=== PATIENT | male | born 1980 | race Caucasian/White ===

== ENCOUNTER 2017-02-09 19:38 | Inpatient (IN) | payer OTHER ==
[~2017-02-09] VITALS: Ht 177.8 cm; Wt 98.9 kg
--- NOTE | 2017-02-09 20:28 | ED Abdominal Pain ---
General Chief Complaint: Abdominal/GI Problems Stated Complaint: SHARP ABD PAIN Nursing Triage Note: INTERMITTANT SHARP LLQ ABDOMINAL PAIN SINCE SATURDAY AM. DENIES N/V/D. Sepsis Screen: Possible Sepsis Risk Source of Information: Patient Exam Limitations: No Limitations History of Present Illness Time Seen By Provider: 20:31 Initial Comments To ER with left lower quadrant sharp abdominal pain since yesterday. Denies nausea vomiting diarrhea or dysuria. No known fevers though he is found to be 101.8 here. Timing/Duration: 1-2 Days Severity/Quality: Moderate Location: LLQ Radiation: No Radiation, LLQ Activities at Onset: None Associated Symptoms: Denies Symptoms, No Fever/Chills, No Nausea/Vomiting Allergies and Home Medications Allergies Coded Allergies: No Known Drug Allergies (Unverified , 02/09/17) Home Medications No Active Prescriptions or Reported Meds Review of Systems Constitutional: see HPI EENTM: No Symptoms Reported Respiratory: No Symptoms Reported Cardiovascular: No Symptoms Reported Gastrointestinal: See HPI Genitourinary: No Symptoms Reported Musculoskeletal: no symptoms reported Skin: no symptoms reported Psychiatric/Neurological: No Symptoms Reported Endocrine: No Symptoms Reported Hematologic/Lymphatic: No Symptoms Reported Past Kywtuzg-Odixte-Eqqlok Hx Patient Social History Alcohol Use: Denies Use Recreational Drug Use: Yes Smoking Status: Never a Smoker Type Used: Smokeless Tobacco 2nd Hand Smoke Exposure: No Recent Foreign Travel: No Contact w/Someone Who Travel: No Recent Infectious Disease Expo: No Recent Hopitalizations: No Immunizations Up To Date Tetanus Booster (TDap): Unknown Seasonal Allergies Seasonal Allergies: No Surgeries HX Surgeries: Yes (EAR) Respiratory Hx Respiratory Disorders: No Cardiovascular Hx Cardiac Disorders: No Neurological Hx Neurological Disorders: No Reproductive System Hx Reproductive Disorders: No Genitourinary Hx Genitourinary Disorders: No Gastrointestinal Hx Gastrointestinal Disorders: No Musculoskeletal Hx Musculoskeletal Disorders: No Endocrine Hx Endocrine Disorders: No HEENT HX ENT Disorders: No Cancer Hx Cancer: No Psychosocial Hx Psychiatric Problems: No Integumentary HX Skin/Integumentary Disorder: No Physical Exam Vital Signs VS - Last 72 Hours, by Label 02/09/17 02/09/17 20:07 20:43 Temp 101.1 101.1 Pulse 103 Resp 18 B/P (MAP) 135/65 Pulse Ox 95 O2 Delivery Room Air Capillary Refill : Less Than 3 Seconds General Appearance: WD/WN, no apparent distress HEENT: PERRL/EOMI, normal ENT inspection Neck: non-tender, full range of motion Respiratory: normal breath sounds, no respiratory distress, no accessory muscle use Gastrointestinal: normal bowel sounds, soft, tenderness (left lower quadrant) Extremities: normal range of motion, non-tender Neurologic/Psychiatric: alert, normal mood/affect, oriented x 3 Skin: normal color, warm/dry Focused Exam Lactic Acid Level Laboratory Tests Test 02/09/17 20:17 Lactic Acid Level 0.71 MMOL/L (0.50-2.00) Progress/Results/Core Measures Results/Orders Lab Results Laboratory Tests Test 02/09/17 20:17 Range/Units White Blood Count 19.7 H 4.3-11.0 10^3/uL Red Blood Count 5.14 4.35-5.85 10^6/uL Hemoglobin 14.7 13.3-17.7 G/DL Hematocrit 45 40-54 % Mean Corpuscular Volume 88 80-99 FL Mean Corpuscular Hemoglobin 29 25-34 PG Mean Corpuscular Hemoglobin Concent 33 32-36 G/DL Red Cell Distribution Width 14.0 10.0-14.5 % Platelet Count 328 130-400 10^3/uL Mean Platelet Volume 9.4 7.4-10.4 FL Neutrophils (%) (Auto) 88 H 42-75 % Lymphocytes (%) (Auto) 5 L 12-44 % Monocytes (%) (Auto) 7 0-12 % Eosinophils (%) (Auto) 0 0-10 % Basophils (%) (Auto) 0 0-10 % Neutrophils # (Auto) 17.3 H 1.8-7.8 X 10^3 Lymphocytes # (Auto) 0.9 L 1.0-4.0 X 10^3 Monocytes # (Auto) 1.4 H 0.0-1.0 X 10^3 Eosinophils # (Auto) 0.1 0.0-0.3 10^3/uL Basophils # (Auto) 0.0 0.0-0.1 10^3/uL Neutrophils % (Manual) 92 % Lymphocytes % (Manual) 4 % Monocytes % (Manual) 2 % Eosinophils % (Manual) 1 % Basophils % (Manual) 0 % Band Neutrophils 1 % Blood Morphology Comment NORMAL Sodium Level 139 135-145 MMOL/L Potassium Level 3.9 3.6-5.0 MMOL/L Chloride Level 107 98-107 MMOL/L Carbon Dioxide Level 24 21-32 MMOL/L Anion Gap 8 5-14 MMOL/L Blood Urea Nitrogen 10 7-18 MG/DL Creatinine 0.93 0.60-1.30 MG/DL Estimat Glomerular Filtration Rate > 60 BUN/Creatinine Ratio 11 Glucose Level 95 70-105 MG/DL Lactic Acid Level 0.71 0.50-2.00 MMOL/L Calcium Level 9.2 8.5-10.1 MG/DL Total Bilirubin 0.8 0.1-1.0 MG/DL Aspartate Amino Transf (AST/SGOT) 12 5-34 U/L Alanine Aminotransferase (ALT/SGPT) 11 0-55 U/L Alkaline Phosphatase 240 H 40-136 U/L Total Protein 6.9 6.4-8.2 G/DL Albumin 4.0 3.2-4.5 G/DL My Orders Orders - RICHI VILLA APRN Cbc With Automated Diff (02/09/17 20:05) Comprehensive Metabolic Panel (02/09/17 20:05) Ua Culture If Indicated (02/09/17 20:05) Ct Abdomen/Pelvis W (02/09/17 20:16) Saline Lock/Iv-Start (02/09/17 20:16) Blood Culture (02/09/17 20:16) Lactic Acid Analyzer (02/09/17 20:16) Ibuprofen Tablet (Motrin Tablet) (02/09/17 20:30) Ns Iv 1000 Ml (Sodium Chloride 0.9%) (02/09/17 20:30) Fentanyl Injection (Sublimaze Injection (02/09/17 20:30) Iohexol Injection (Omnipaque 350 Mg/Ml 1 (02/09/17 20:30) Ns (Ivpb) (Sodium Chloride 0.9% Ivpb Bag (02/09/17 20:30) Manual Differential (02/09/17 20:17) Piperacillin Sodium/Tazobactam (Zosyn Vi (02/09/17 21:00) Medications Given in ED Current Medications Medications Dose Ordered Sig/Callie Route Start Time Stop Time Status Last Admin Dose Admin Fentanyl Citrate 50 mcg ONCE ONCE IVP 02/09/17 20:30 02/09/17 20:31 DC 02/09/17 20:44 50 MCG Ibuprofen 800 mg ONCE ONCE PO 02/09/17 20:30 02/09/17 20:31 DC 02/09/17 20:43 800 MG Iohexol 100 ml ONCE ONCE IV 02/09/17 20:30 02/09/17 20:31 DC 02/09/17 20:33 100 ML Sodium Chloride 100 ml ONCE ONCE IV 02/09/17 20:30 02/09/17 20:31 DC 02/09/17 20:33 80 ML Vital Signs/I&O Vital Sign - Last 12Hours 02/09/17 02/09/17 20:07 20:43 Temp 101.1 101.1 Pulse 103 Resp 18 B/P (MAP) 135/65 Pulse Ox 95 O2 Delivery Room Air Blood Pressure Mean: 88 Departure Communication Time/Spoke to Admitting Phy: 21:[address] Velasquez has been in to see the patient. We will observe him in the intensive care unit tonight, Gabi and Flagyl, if he worsens likely do a bowel resection with colostomy versus a more conservative approach with possible interventional radiology consult to drain the abscess. Time/Spoke to Consulting Physi: 21:22 Communication/Consulting Dr. Mai has been consult for medical management. This patient has no known medical comorbidities Impression Impression: Primary Impression: Perforated bowel Additional Impression: Intra-abdominal abscess Disposition: ADMITTED INPATIENT Condition: Stable Decision to Admit Reason: Admit from ER (General) Decision to Admit/Date: Feb 09, 2017 Time/Decision to Admit Time: 21:03 Departure-Patient Inst. Referrals: ALLYSON VERAS MD (PCP) Primary Care Physician Scripts No Active Prescriptions or Reported Meds RICHI VILLA APRN Feb 09, 2017 20:28
[2017-02-09 20:29] LABS: BASOPHILS % (AUTO) 0 % (0-10); EOSINOPHILS # (AUTO) 0.1 10^3/uL (0.0-0.3); EOSINOPHILS % (AUTO) 0 % (0-10); LYMPHOCYTES # (AUTO) 0.9 X 10^3 (1.0-4.0); LYMPHOCYTES % (AUTO) 5 % (12-44); MEAN CORPUSCULAR HEMOGLOBIN 29 PG (25-34); MEAN CORPUSCULAR HGB CONC 33 G/DL (32-36); MEAN CORPUSCULAR VOLUME 88 FL (80-99); MEAN PLATELET VOLUME 9.4 FL (7.4-10.4); MONOCYTES # (AUTO) 1.4 X 10^3 (0.0-1.0); MONOCYTES % (AUTO) 7 % (0-12); NEUTROPHILS # (AUTO) 17.3 X 10^3 (1.8-7.8); NEUTROPHILS % (AUTO) 88 % (42-75); PLATELET COUNT 328 10^3/uL (130-400); RED BLOOD COUNT 5.14 10^6/uL (4.35-5.85); WHITE BLOOD COUNT 19.7 10^3/uL (4.3-11.0)
[2017-02-09] MEDS ORDERED: NS 100 ML (IVPB) BAG IV ONE (20:30)
[2017-02-09] MEDS ORDERED: NS IV 1000 ML 1,000 ML IV SCH (20:30)
[2017-02-09] MEDS ORDERED: IOHEXOL 350 MG/ML 100 ML (OMNIPAQUE 350) VIAL IV ONE (20:30)
[2017-02-09] MEDS ORDERED: IBUPROFEN 800 MG (MOTRIN) TAB PO ONE (20:30)
[2017-02-09] MEDS ORDERED: fentaNYL INJECTION 100 MCG/2 ML AMP IVP ONE ×2 (20:30→21:30)
[2017-02-09 20:46] LABS: BAND NEUTROPHILS 1 %; BASOPHILS % (MANUAL) 0 %; EOSINOPHILS % (MANUAL) 1 %; LYMPHOCYTES % (MANUAL) 4 %; NEUTROPHILS % (MANUAL) 92 %
[2017-02-09 20:51] LABS: ALANINE AMINOTRANSFERASE 11 U/L (0-55); ANION GAP 8 MMOL/L (5-14); ASPARTATE AMINO TRANSFERASE 12 U/L (5-34); BILIRUBIN,TOTAL 0.8 MG/DL (0.1-1.0); BLOOD UREA NITROGEN 10 MG/DL (7-18); BUN/CREATININE RATIO 11; CALCIUM 9.2 MG/DL (8.5-10.1); CARBON DIOXIDE 24 MMOL/L (21-32); CHLORIDE 107 MMOL/L (98-107); CREATININE SERUM 0.93 MG/DL (0.60-1.30); GFR ESTIMATED > 60; GLUCOSE 95 MG/DL (70-105); POTASSIUM 3.9 MMOL/L (3.6-5.0); SODIUM 139 MMOL/L (135-145); TOTAL PROTEIN 6.9 G/DL (6.4-8.2)
--- NOTE | 2017-02-09 20:58 | Diagnostic Imaging Report ---
PROCEDURE: CT abdomen and pelvis with contrast. TECHNIQUE: Multiple contiguous axial images were obtained through the abdomen and pelvis after administration of intravenous contrast. DATE: February 09, 2017. COMPARISON: None. INDICATION: 36-year-old male, left lower quadrant abdominal pain. FINDINGS: There is mild atelectasis in the dependent lung bases. The heart is not enlarged. There is no pericardial effusion. The liver is normal in size and contour. There is no identified liver lesion. The main, right, and left portal vein are patent. The gallbladder is not distended. There is no intrahepatic or extrahepatic bile duct dilation. The pancreatic parenchyma is unremarkable. The spleen is normal in size. The adrenal glands are unremarkable. There is a 2 mm low-attenuation left renal lesion on image 32 too small to characterize. The urinary collecting systems are not distended. There is no identified renal or ureteral stone. The urinary bladder is grossly unremarkable in appearance. There is prominent abnormal wall thickening of the mid sigmoid colon with adjacent extensive inflammatory stranding. There is a gas containing fluid collection subjacent to the mid sigmoid colon on axial image 84 which measures 2.2 x 3.1 cm in axial dimension which is most compatible with an abscess. There are additional focal areas of contained fluid and gas also likely relating to abscess formation on axial image 81 which measure up to approximately 3.7 x 0.8 cm in extent. There is a moderate volume free intraperitoneal air. The appendix is seen on axial image 64. There is no evidence of acute appendicitis. The intestinal tract is not distended. There is no identified abnormally enlarged lymph node within the abdomen or pelvis which specifically meets CT size criteria for adenopathy. There is no identified acute bony abnormality. IMPRESSION: CT ABDOMEN AND PELVIS. 1. Marked abnormal wall thickening and adjacent inflammatory stranding of the mid sigmoid colon without prominent diverticular disease in this location. There are adjacent gas containing fluid collections most compatible with the abscesses as described above. There is also moderate volume free intraperitoneal air compatible with bowel perforation. Etiology for the bowel wall thickening potentially may relate to an infectious or inflammatory colitis, diverticulitis although there is an absence of diverticula visible at this location or otherwise noted, or possibly a perforated malignancy. Dr. Frederick was notified by telephone of the above findings at 2051 hours on February 09, 2017 and acknowledged receipt of this critical result. Dictated by: Dictated on workstation # [id number]
[2017-02-09] MEDS ORDERED: PIPERACILLIN SODIUM/TAZOBACTAM 4.5 GM in NS (IVPB) 100 ML IV ONE (21:00)
[2017-02-09] MEDS ORDERED: metroNIDAZOLE 500MG/100ML IVPB 100 ML IV ONE (21:30)
--- NOTE | 2017-02-09 21:54 | History & Physical-Surgical ---
History of Present Illness History of Present Illness Reason for visit/HPI CC: LLQ abdominal pain. 36 year old male who has llq abdominal pain since yesterday morning. Pain is sharp and no radiation. He rates his pain a 5/10. Laying still makes better and a lot of movement cause pain to worsen. Patient report that he has had no previous problems similar to this. He denies any fever but had temp of 101.8 in ED. Patient has no nausea, vomiting sweats chills shortness of breath or chest pain. He has a ct scan showing inflammation and small abscesses of lower abdomen small to moderate amount of free air. Date of Admission I consulted on this patient on 02/09/17 21:49 Attending Physician Admitting Physician Guicho Prather MD Consult Allergies and Home Medications Allergies Coded Allergies: No Known Drug Allergies (Unverified , 02/09/17) Home Medications No Active Prescriptions or Reported Meds Past Pyypcri-Fjejjm-Moalbo Hx Patient Social History Alcohol Use: Denies Use Recreational Drug Use: No Smoking Status: Never a Smoker Type Used: Smokeless Tobacco 2nd Hand Smoke Exposure: No Recent Foreign Travel: No Contact w/Someone Who Travel: No Recent Infectious Disease Expo: No Recent Hopitalizations: No Immunizations Up To Date Tetanus Booster (TDap): Unknown Seasonal Allergies Seasonal Allergies: No Surgeries HX Surgeries: Yes (EAR) Respiratory Hx Respiratory Disorders: No Cardiovascular Hx Cardiac Disorders: No Neurological Hx Neurological Disorders: No Reproductive System Hx Reproductive Disorders: No Genitourinary Hx Genitourinary Disorders: No Gastrointestinal Hx Gastrointestinal Disorders: No Musculoskeletal Hx Musculoskeletal Disorders: No Endocrine Hx Endocrine Disorders: No HEENT HX ENT Disorders: No Cancer Hx Cancer: No Psychosocial Hx Psychiatric Problems: No Integumentary HX Skin/Integumentary Disorder: No Family Medical History Significant Family History: No Pertinent Family Hx Constitutional: see HPI EENTM: no symptoms reported Respiratory: no symptoms reported Cardiovascular: no symptoms reported Gastrointestinal: abdominal pain (LLQ) Genitourinary: no symptoms reported Musculoskeletal: no symptoms reported Skin: no symptoms reported Psychiatric/Neurological: No Symptoms Reported Physical Exam Vital Signs Vital Sign - Last 12Hours 02/09/17 20:07 Temp 101.1 Pulse 103 Resp 18 B/P (MAP) 135/65 Pulse Ox 95 O2 Delivery Room Air Capillary Refill : Less Than 3 Seconds General Appearance: Mild Distress HEENT: PERRL/EOMI, Normal ENT Inspection Neck: Supple Respiratory: No Accessory Muscle Use, No Respiratory Distress Cardiovascular: Regular Rate, Rhythm Gastrointestinal: Tenderness (in the llq focalized area, no peritonitis, no guarding or rebounding) Rectal: Deferred Extremity: Non Tender Neurologic/Psychiatric: Alert, Oriented x3, Normal Mood/Affect Skin: Warm/Dry Data Review Labs Laboratory Tests 02/09/17 20:17: White Blood Count 19.7H, Red Blood Count 5.14, Hemoglobin 14.7, Hematocrit 45, Mean Corpuscular Volume 88, Mean Corpuscular Hemoglobin 29, Mean Corpuscular Hemoglobin Concent 33, Red Cell Distribution Width 14.0, Platelet Count 328, Mean Platelet Volume 9.4, Neutrophils (%) (Auto) 88H, Lymphocytes (%) (Auto) 5L , Monocytes (%) (Auto) 7, Eosinophils (%) (Auto) 0, Basophils (%) (Auto) 0, Neutrophils # (Auto) 17.3H, Lymphocytes # (Auto) 0.9L, Monocytes # (Auto) 1.4H, Eosinophils # (Auto) 0.1, Basophils # (Auto) 0.0, Neutrophils % (Manual) 92, Lymphocytes % (Manual) 4, Monocytes % (Manual) 2, Eosinophils % (Manual) 1, Basophils % (Manual) 0, Band Neutrophils 1, Blood Morphology Comment NORMAL, Sodium Level 139, Potassium Level 3.9, Chloride Level 107, Carbon Dioxide Level 24, Anion Gap 8, Blood Urea Nitrogen 10, Creatinine 0.93, Estimat Glomerular Filtration Rate > 60, BUN/Creatinine Ratio 11, Glucose Level 95, Lactic Acid Level 0.71, Calcium Level 9.2, Total Bilirubin 0.8, Aspartate Amino Transf (AST/ SGOT) 12, Alanine Aminotransferase (ALT/SGPT) 11, Alkaline Phosphatase 240H, Total Protein 6.9, Albumin 4.0 Assessment/Plan Assessment/Plan Assessment/Plan 36 year old male with acute diverticulitis with perforation/abscess, sepsis patient with small to moderate amount of free air but on exam focalized tenderness to the left lower quadrant discussed with patient ct findings and lab work and discussed possible surgical intervention needed, but at this time feel that may have sealed perforation since focalized minimal tenderness. Patient at this time does not want surgical intervention and would like to see if with conservative management if he has any improvement NPO Iv hydration Zosyn/Flagyl Dr. Mai consulted Will watch closely Repeat labs in am. AB SHEIKH DO Feb 09, 2017 21:54
[2017-02-09 23:30] VITALS: BP 109/72
[2017-02-09] MEDS ORDERED: IBUPROFEN 600 MG (MOTRIN) TAB PO PRN (23:45)
[2017-02-09] MEDS ORDERED: ONDANSETRON 4 MG/2 ML (SDV) Z0FRAN IV PRN (23:45)
[2017-02-09] MEDS ORDERED: ACETAMINOPHEN 325 MG TABLET/CAPLET (TYLENOL) PO PRN (23:45)
[2017-02-09] MEDS ORDERED: NS IV 1000 ML 1,000 ML ONE (23:50)
[2017-02-09 23:55] LABS: BILIRUBIN,URINE NEGATIVE (NEGATIVE); KETONES,URINE 1+ (NEGATIVE); LEUKOCYTE ESTERASE ,URINE NEGATIVE (NEGATIVE); NITRITE,URINE NEGATIVE (NEGATIVE); PH,URINE 5 (5-9); PROTEIN,URINE 1+ (NEGATIVE); UROBILINOGEN,URINE NORMAL (NORMAL)
[2017-02-10] VITALS (22 sets, daily range): BP systolic 101–129; BP diastolic 56–73
[2017-02-10] MEDS ORDERED: CATHETER FLUSH 10 ML SYR IV PRN (00:15)
[2017-02-10] MEDS: NS IV 1000 ML 1,000 ML IV SCH ×4 (01:30→23:15)
[2017-02-10] MEDS: PIPERACILLIN/TAZOBACTAM 4.5 GM/NS 100 ML IVPB IV SCH ×6 (03:57→18:43)
[2017-02-10] MEDS: fentaNYL INJECTION 100 MCG/2 ML AMP IV PRN ×8 (06:11→23:35)
[2017-02-10] MEDS: metroNIDAZOLE 500 MG/100 ML IVPB (PRE-MIX) IV SCH ×3 (06:11→20:51)
[2017-02-10] MEDS: CATHETER FLUSH 10 ML SYR IV SCH ×3 (06:21→20:45)
[2017-02-10] MEDS: KCL 20 MEQ TAB (K-DUR) PO SCH (06:21)
[2017-02-10 06:25] LABS: BASOPHILS % (AUTO) 0 % (0-10); EOSINOPHILS # (AUTO) 0.2 10^3/uL (0.0-0.3); EOSINOPHILS % (AUTO) 1 % (0-10); LYMPHOCYTES # (AUTO) 0.8 X 10^3 (1.0-4.0); LYMPHOCYTES % (AUTO) 5 % (12-44); MEAN CORPUSCULAR HEMOGLOBIN 29 PG (25-34); MEAN CORPUSCULAR HGB CONC 33 G/DL (32-36); MEAN CORPUSCULAR VOLUME 88 FL (80-99); MEAN PLATELET VOLUME 9.3 FL (7.4-10.4); MONOCYTES # (AUTO) 1.5 X 10^3 (0.0-1.0); MONOCYTES % (AUTO) 9 % (0-12); NEUTROPHILS % (AUTO) 85 % (42-75); PLATELET COUNT 282 10^3/uL (130-400); RED BLOOD COUNT 4.84 10^6/uL (4.35-5.85); WHITE BLOOD COUNT 17.6 10^3/uL (4.3-11.0)
[2017-02-10 06:41] LABS: ANION GAP 8 MMOL/L (5-14); BLOOD UREA NITROGEN 8 MG/DL (7-18); BUN/CREATININE RATIO 9; CALCIUM 8.6 MG/DL (8.5-10.1); CARBON DIOXIDE 24 MMOL/L (21-32); CHLORIDE 107 MMOL/L (98-107); CREATININE SERUM 0.85 MG/DL (0.60-1.30); GFR ESTIMATED > 60; GLUCOSE 86 MG/DL (70-105); MAGNESIUM 1.9 MG/DL (1.8-2.4); PHOSPHORUS 1.9 MG/DL (2.3-4.7); POTASSIUM 3.8 MMOL/L (3.6-5.0); SODIUM 139 MMOL/L (135-145)
[2017-02-10] MEDS: MAGNESIUM 1 GM/100 ML IVPB 100 ML IV SCH (06:45)
[2017-02-10] MEDS: POTASSIUM CL 10MEQ/50ML IVPB 50 ML IV SCH (06:45)
--- NOTE | 2017-02-10 09:09 | Progress Note ---
Subjective Subjective/Events-last exam patient states feeling about the same. No fever overnight and not tachycardic. Pain only in the left lower quadrant. NPO WBC down to 17K Objective Exam Vital Signs Date Time Temp Pulse Resp B/P (MAP) Pulse Ox O2 Delivery O2 Flow Rate FiO2 02/10/17 08:00 98.7 87 14 121/69 96 Room Air 02/10/17 08:00 96 02/10/17 07:00 88 02/10/17 06:11 98.1 02/10/17 06:00 85 118/72 Room Air 02/10/17 05:00 88 107/69 Room Air 02/10/17 04:00 84 114/65 Room Air 02/10/17 03:00 91 20 123/69 96 Room Air 02/10/17 02:00 69 20 129/73 98 Room Air 02/10/17 01:00 73 02/10/17 01:00 74 22 98 Room Air 02/10/17 00:21 82 02/10/17 00:00 76 18 101/67 95 Room Air 02/09/17 23:30 98.1 88 16 109/72 96 Room Air 02/09/17 23:26 98.9 89 16 97 02/09/17 21:23 99.3 92 16 128/77 97 Room Air 02/09/17 20:43 101.1 02/09/17 20:07 101.1 103 18 135/65 95 Room Air I & O 02/10/17 07:00 Intake Total 1200 ml Output Total 1200 ml Balance 0 ml Capillary Refill : Less Than 3 SecondsLess Than 3 Seconds General Appearance: No Apparent Distress (laying in bed) HEENT: PERRL/EOMI, Normal ENT Inspection Neck: Supple Respiratory: No Accessory Muscle Use, No Respiratory Distress Cardiovascular: Regular Rate, Rhythm Gastrointestinal: normal bowel sounds, soft, tenderness (left lower quadrant no guarding or rebounding) Extremity: Non Tender Neurologic/Psychiatric: Alert, Oriented x3, Normal Mood/Affect Skin: Warm/Dry Results Lab Laboratory Tests 02/09/17 20:17: White Blood Count 19.7H, Red Blood Count 5.14, Hemoglobin 14.7, Hematocrit 45, Mean Corpuscular Volume 88, Mean Corpuscular Hemoglobin 29, Mean Corpuscular Hemoglobin Concent 33, Red Cell Distribution Width 14.0, Platelet Count 328, Mean Platelet Volume 9.4, Neutrophils (%) (Auto) 88H, Lymphocytes (%) (Auto) 5L , Monocytes (%) (Auto) 7, Eosinophils (%) (Auto) 0, Basophils (%) (Auto) 0, Neutrophils # (Auto) 17.3H, Lymphocytes # (Auto) 0.9L, Monocytes # (Auto) 1.4H, Eosinophils # (Auto) 0.1, Basophils # (Auto) 0.0, Neutrophils % (Manual) 92, Lymphocytes % (Manual) 4, Monocytes % (Manual) 2, Eosinophils % (Manual) 1, Basophils % (Manual) 0, Band Neutrophils 1, Blood Morphology Comment NORMAL, Sodium Level 139, Potassium Level 3.9, Chloride Level 107, Carbon Dioxide Level 24, Anion Gap 8, Blood Urea Nitrogen 10, Creatinine 0.93, Estimat Glomerular Filtration Rate > 60, BUN/Creatinine Ratio 11, Glucose Level 95, Lactic Acid Level 0.71, Calcium Level 9.2, Total Bilirubin 0.8, Aspartate Amino Transf (AST/ SGOT) 12, Alanine Aminotransferase (ALT/SGPT) 11, Alkaline Phosphatase 240H, Total Protein 6.9, Albumin 4.0 02/09/17 23:50: Urine Color YELLOW, Urine Clarity CLEAR, Urine pH 5, Urine Specific [place] 1.015L, Urine Protein 1+H, Urine Glucose (UA) NEGATIVE, Urine Ketones 1+H, Urine Nitrite NEGATIVE, Urine Bilirubin NEGATIVE, Urine Urobilinogen NORMAL, Urine Leukocyte Esterase NEGATIVE, Urine RBC (Auto) NEGATIVE, Urine RBC NONE, Urine WBC NONE, Urine Squamous Epithelial Cells 2-5, Urine Crystals NONE, Urine Bacteria NEGATIVE, Urine Casts NONE, Urine Mucus NEGATIVE, Urine Culture Indicated NO 02/10/17 06:15: White Blood Count 17.6H, Red Blood Count 4.84, Hemoglobin 14.0, Hematocrit 43, Mean Corpuscular Volume 88, Mean Corpuscular Hemoglobin 29, Mean Corpuscular Hemoglobin Concent 33, Red Cell Distribution Width 14.0, Platelet Count 282, Mean Platelet Volume 9.3, Neutrophils (%) (Auto) 85H, Lymphocytes (%) (Auto) 5L , Monocytes (%) (Auto) 9, Eosinophils (%) (Auto) 1, Basophils (%) (Auto) 0, Neutrophils # (Auto) 15.0H, Lymphocytes # (Auto) 0.8L, Monocytes # (Auto) 1.5H, Eosinophils # (Auto) 0.2, Basophils # (Auto) 0.0, Sodium Level 139, Potassium Level 3.8, Chloride Level 107, Carbon Dioxide Level 24, Anion Gap 8, Blood Urea Nitrogen 8, Creatinine 0.85, Estimat Glomerular Filtration Rate > 60, BUN/ Creatinine Ratio 9, Glucose Level 86, Calcium Level 8.6, Phosphorus Level 1.9L, Magnesium Level 1.9 Assessment/Plan Assessment/Plan Assessment/Plan 36 year old male with acute diverticulitis with perforation/abscess, sepsis patient with small to moderate amount of free air but on exam focalized tenderness to the left lower quadrant about the same as yesterday patient at this time wishes to continue with conservative management. Discussed if not much more improvement may need to proceed with surgical intervention. NPO Iv hydration Zosyn/Flagyl Dr. Mai consulted Will continue to watch closely Repeat labs in am. Clinical Quality Measures DVT/VTE Risk/Contraindication: RFS Level Per Nursing on Admit: 1=Low/No VTE PPX AB SHEIKH DO Feb 10, 2017 09:09
--- NOTE | 2017-02-10 12:24 | Consultation-Hospitalist ---
HPI History of Present Illness: HPI/Chief Complaint CC: Diverticulitis with abscess HPI: This is a 36yoWM w/no GI hx that presents to the ER w/severe abdominal pain and fever. CT scan revealed diverticulitis with abscess and DR Velasquez has consulted me for management of sepsis. Currently he has just received some pain medication and does feel much better. He does have a history one month ago of some abdominal pain that lasts for one day and he thought he was a hernia. He has no family history of diverticulosis or colon resections. He works at [employer] for the past 3 years. Source: patient Exam Limitations: no limitations Date Seen 02/10/17 Attending Physician Rajesh Velasquez Floyd R MD Referring Physician Date of Admission Feb 09, 2017 at 21:16 Home Medications & Allergies Home Medications Reviewed patient Home Medication Reconciliation Form Allergies Allergies Coded Allergies No Known Drug Allergies (Unverified02/09/17) Past Xbcjxnh-Xkgcyn-Yfwjmi Hx Patient Social History Marrital Status: single Employed/Student: employed Alcohol Use: Denies Use Recreational Drug Use: No Smoking Status: Never a Smoker Type Used: Smokeless Tobacco 2nd Hand Smoke Exposure: No Physical Abuse Screen: No Sexual Abuse: No Recent Foreign Travel: No Contact w/other who traveled: No Recent Hopitalizations: No Recent Infectious Disease Expo: No Immunizations Up To Date Tetanus Booster (TDap): Unknown Seasonal Allergies Seasonal Allergies: No Surgeries HX Surgeries: Yes (EAR) Respiratory Hx Respiratory Disorders: No Cardiovascular Hx Cardiovascular Disorders: No Neurological Hx Neurological Disorders: No Reproductive System Hx Reproductive Disorders: No Genitourinary Hx Genitourinary Disorders: Yes Genitourinary Disorders: Kidney Stones Gastrointestinal Hx Gastrointestinal Disorders: No Musculoskeletal Hx Musculoskeletal Disorders: No Endocrine Hx Endocrine Disorders: No HEENT HX ENT Disorders: No Cancer Hx Cancer: No Psychosocial Hx Psychiatric Problems: No Integumentary HX Skin/Integumentary Disorder: No Blood Transfusions Adverse Reaction to a Blood Tr: No Family Medical History Significant Family History: No Pertinent Family Hx Review of Systems Constitutional: see HPI, dizziness, fever, malaise, weakness EENTM: no symptoms reported Respiratory: no symptoms reported Cardiovascular: no symptoms reported Gastrointestinal: abdominal pain (LLQ) Genitourinary: no symptoms reported Musculoskeletal: no symptoms reported Skin: no symptoms reported Psychiatric/Neurological: No Symptoms Reported All Other Systems Reviewed Negative Unless Noted: Yes Physical Exam Physical Exam Vital Signs Vital Sign - Last 12Hours 02/09/17 20:07 Temp 101.1 Pulse 103 Resp 18 B/P (MAP) 135/65 Pulse Ox 95 O2 Delivery Room Air Capillary Refill : Less Than 3 SecondsLess Than 3 Seconds General Appearance: No Apparent Distress, WD/WN Eyes: Bilateral Eye Normal Inspection, Bilateral Eye PERRL HEENT: PERRL/EOMI, Normal ENT Inspection, Pharynx Normal Neck: Full Range of Motion, Normal Inspection, Non Tender, Supple, Carotid Bruit Respiratory: Chest Non Tender, Lungs Clear, Normal Breath Sounds, No Accessory Muscle Use, No Respiratory Distress Cardiovascular: Regular Rate, Rhythm, No Edema, No Gallop, No JVD, No Murmur, Normal Peripheral Pulses Gastrointestinal: Normal Bowel Sounds, No Organomegaly, No Pulsatile Mass, Soft , Tenderness Back: Normal Inspection, No CVA Tenderness, No Vertebral Tenderness Extremity: Normal Capillary Refill, Normal Inspection, Normal Range of Motion, Non Tender, No Calf Tenderness, No Pedal Edema Neurologic/Psychiatric: Alert, Oriented x3, No Motor/Sensory Deficits, Normal Mood/Affect Skin: Normal Color, Warm/Dry Lymphatic: No Adenopathy Results Results/Procedures Lab Laboratory Tests 02/09/17 20:17 02/10/17 06:15 Assessment/Plan Admission Diagnosis Assessment: Acute diverticulitis with abscess formation with sepsis with elevated lactic acid Fever Leukocytosis Assessment and Plan Plan: IV fluids IV antibiotics Pain medication SCDs We'll follow with you. Clinical Quality Measures DVT/VTE Risk/Contraindication: RFS Level Per Nursing on Admit: 1=Low/No VTE PPX TINO RAMOS DO Feb 10, 2017 12:24
[2017-02-11] VITALS (21 sets, daily range): BP systolic 96–135; BP diastolic 48–92
[2017-02-11] MEDS: PIPERACILLIN/TAZOBACTAM 4.5 GM/NS 100 ML IVPB IV SCH ×6 (03:58→21:08)
[2017-02-11 04:25] LABS: BASOPHILS % (AUTO) 0 % (0-10); EOSINOPHILS # (AUTO) 0.4 10^3/uL (0.0-0.3); EOSINOPHILS % (AUTO) 3 % (0-10); LYMPHOCYTES # (AUTO) 0.7 X 10^3 (1.0-4.0); LYMPHOCYTES % (AUTO) 6 % (12-44); MEAN CORPUSCULAR HEMOGLOBIN 28 PG (25-34); MEAN CORPUSCULAR HGB CONC 31 G/DL (32-36); MEAN CORPUSCULAR VOLUME 89 FL (80-99); MEAN PLATELET VOLUME 9.6 FL (7.4-10.4); MONOCYTES # (AUTO) 1.1 X 10^3 (0.0-1.0); MONOCYTES % (AUTO) 9 % (0-12); NEUTROPHILS # (AUTO) 10.2 X 10^3 (1.8-7.8); NEUTROPHILS % (AUTO) 82 % (42-75); PLATELET COUNT 297 10^3/uL (130-400); RED BLOOD COUNT 4.79 10^6/uL (4.35-5.85); RED CELL DISTRIBUTION WIDTH 13.9 % (10.0-14.5); WHITE BLOOD COUNT 12.4 10^3/uL (4.3-11.0)
[2017-02-11 04:43] LABS: ANION GAP 12 MMOL/L (5-14); BLOOD UREA NITROGEN 8 MG/DL (7-18); BUN/CREATININE RATIO 10; CALCIUM 8.8 MG/DL (8.5-10.1); CARBON DIOXIDE 22 MMOL/L (21-32); CHLORIDE 106 MMOL/L (98-107); GFR ESTIMATED > 60; GLUCOSE 70 MG/DL (70-105); MAGNESIUM 1.9 MG/DL (1.8-2.4); PHOSPHORUS 2.3 MG/DL (2.3-4.7); POTASSIUM 3.7 MMOL/L (3.6-5.0); SODIUM 140 MMOL/L (135-145)
[2017-02-11] MEDS: CATHETER FLUSH 10 ML SYR IV SCH ×3 (05:13→21:08)
[2017-02-11] MEDS: metroNIDAZOLE 500 MG/100 ML IVPB (PRE-MIX) IV SCH ×3 (05:13→22:40)
[2017-02-11] MEDS: POTASSIUM CL 10MEQ/50ML IVPB 50 ML IV SCH (05:44)
[2017-02-11] MEDS: MAGNESIUM 1 GM/100 ML IVPB 100 ML IV SCH (05:44)
[2017-02-11] MEDS: KCL 20 MEQ TAB (K-DUR) PO SCH (05:45)
[2017-02-11] MEDS: NS IV 1000 ML 1,000 ML IV SCH ×3 (06:34→22:27)
--- NOTE | 2017-02-11 07:40 | Diagnostic Imaging Report ---
Indication: Dyspnea. Discussion: Single portable upright view of the chest was obtained, no comparison. The heart and lungs are normal. No osseous abnormality. Impression: 1. Negative portable chest. Dictated by: Dictated on workstation # [id number]
--- NOTE | 2017-02-11 07:40 | Pulmonary Consultation ---
History of Present Illness History of Present Illness Date of Consultation 02/11/17 07:34 Date of Admission History of Present Illness 36yo presented 02/09 secondary to abdominal pain nonradiating 02/27. Pain is much worse with movement. No prior episodes. temp 101.8. No N/V. CT scan showed diverticulosis with small abscess and free air. I am consulted for ICU management. Allergies and Home Medications Allergies Coded Allergies: No Known Drug Allergies (Unverified , 02/09/17) Home Medications No Active Prescriptions or Reported Meds Past Ardtovp-Vkjrim-Jpnqmz Hx Patient Social History Alcohol Use: Denies Use Recreational Drug Use: No Smoking Status: Never a Smoker Type Used: Smokeless Tobacco 2nd Hand Smoke Exposure: No Recent Foreign Travel: No Contact w/Someone Who Travel: No Recent Infectious Disease Expo: No Recent Hopitalizations: No Physical Abuse Screen: No Sexual Abuse: No Immunizations Up To Date Tetanus Booster (TDap): Unknown Seasonal Allergies Seasonal Allergies: No Surgeries HX Surgeries: Yes (EAR) Respiratory Hx Respiratory Disorders: No Cardiovascular Hx Cardiac Disorders: No Neurological Hx Neurological Disorders: No Reproductive System Hx Reproductive Disorders: No Genitourinary Hx Genitourinary Disorders: Yes Genitourinary Disorders: Kidney Stones Gastrointestinal Hx Gastrointestinal Disorders: No Musculoskeletal Hx Musculoskeletal Disorders: No Endocrine Hx Endocrine Disorders: No HEENT HX ENT Disorders: No Cancer Hx Cancer: No Psychosocial Hx Psychiatric Problems: No Integumentary HX Skin/Integumentary Disorder: No Blood Transfusions Adverse Reaction to a Blood Tr: No Family Medical History Significant Family History: No Pertinent Family Hx Exam Exam Vital Signs Date Time Temp Pulse Resp B/P (MAP) Pulse Ox O2 Delivery O2 Flow Rate FiO2 02/11/17 06:00 91 110/65 96 Room Air 02/11/17 05:00 79 102/57 98 Room Air 02/11/17 04:00 96 02/11/17 04:00 87 117/72 98 Room Air 02/11/17 03:00 81 113/61 95 Room Air 02/11/17 02:00 76 117/63 95 Room Air 02/11/17 01:04 100 02/11/17 01:00 83 105/72 94 Room Air 02/11/17 00:00 84 102/61 93 Room Air 02/11/17 00:00 96 02/10/17 23:00 79 108/66 96 Room Air 02/10/17 22:00 72 117/72 96 Room Air 02/10/17 21:00 83 106/66 94 Room Air 02/10/17 20:44 98.5 02/10/17 20:00 96 02/10/17 20:00 77 110/67 96 Room Air 02/10/17 20:00 98.5 80 14 97 Room Air 02/10/17 19:00 91 113/65 96 Room Air 02/10/17 19:00 98.5 80 Room Air 02/10/17 19:00 93 02/10/17 18:41 99.7 02/10/17 18:09 100.1 02/10/17 18:00 95 116/67 97 Room Air 02/10/17 17:00 87 109/65 96 Room Air 02/10/17 16:19 100.6 02/10/17 16:00 96 02/10/17 16:00 100.6 89 14 111/61 98 Room Air 02/10/17 15:00 84 109/65 97 Room Air 02/10/17 14:00 93 110/63 97 Room Air 02/10/17 13:00 87 02/10/17 13:00 88 116/65 95 Room Air 02/10/17 12:56 100.1 02/10/17 12:00 96 02/10/17 12:00 100.3 93 18 115/66 97 Room Air 02/10/17 11:00 82 120/68 96 Room Air 02/10/17 10:00 86 109/65 97 Room Air 02/10/17 09:00 89 121/56 97 Room Air 02/10/17 08:00 98.7 87 14 121/69 96 Room Air 02/10/17 08:00 96 I & O 02/11/17 07:00 Intake Total 4700 ml Output Total 3300 ml Balance 1400 ml General Appearance: No Apparent Distress, WD/WN HEENT: PERRL/EOMI, Normal ENT Inspection, Pharynx Normal Neck: Full Range of Motion, Normal Inspection, Non Tender, Supple, Carotid Bruit Respiratory: Chest Non Tender, Lungs Clear, Normal Breath Sounds, No Accessory Muscle Use, No Respiratory Distress Cardiovascular: Regular Rate, Rhythm, No Edema, No Gallop, No JVD, No Murmur, Normal Peripheral Pulses Capillary Refill: Less Than 3 Seconds Gastrointestinal: normal bowel sounds, soft, tenderness (left lower quadrant no guarding or rebounding) Extremity: Normal Capillary Refill, Normal Inspection, Normal Range of Motion, Non Tender, No Calf Tenderness, No Pedal Edema Neurologic/Psychiatric: Alert, Oriented x3, No Motor/Sensory Deficits, Normal Mood/Affect Skin: Normal Color, Warm/Dry Lymphatic: No Adenopathy Results Lab Laboratory Tests 02/09/17 20:17 02/10/17 06:15 02/11/17 03:39 Assessment/Plan Assessment/Plan Acute diverticulitis with abscess and perforation -Dr. Velasquez is following possible surgery pending -NPO sepsis --IV hydration -Zosyn, flagyl Clinical Quality Measures DVT/VTE Risk/Contraindication: RFS Level Per Nursing on Admit: 1=Low/No VTE PPX MACK ALVARADO DO Feb 11, 2017 07:40
--- NOTE | 2017-02-11 09:03 | Progress Note ---
Subjective Subjective/Events-last exam Patient with fever overnight. Patient with more pain. Increased with movement. Rates it at 7-8 out of 10. Objective Exam Vital Signs Date Time Temp Pulse Resp B/P (MAP) Pulse Ox O2 Delivery O2 Flow Rate FiO2 02/11/17 07:00 65 02/11/17 06:00 91 110/65 96 Room Air 02/11/17 05:00 79 102/57 98 Room Air 02/11/17 04:00 96 02/11/17 04:00 87 117/72 98 Room Air 02/11/17 03:00 81 113/61 95 Room Air 02/11/17 02:00 76 117/63 95 Room Air 02/11/17 01:04 100 02/11/17 01:00 83 105/72 94 Room Air 02/11/17 00:00 84 102/61 93 Room Air 02/11/17 00:00 96 02/10/17 23:00 79 108/66 96 Room Air 02/10/17 22:00 72 117/72 96 Room Air 02/10/17 21:00 83 106/66 94 Room Air 02/10/17 20:44 98.5 02/10/17 20:00 96 02/10/17 20:00 77 110/67 96 Room Air 02/10/17 20:00 98.5 80 14 97 Room Air 02/10/17 19:00 91 113/65 96 Room Air 02/10/17 19:00 98.5 80 Room Air 02/10/17 19:00 93 02/10/17 18:41 99.7 02/10/17 18:09 100.1 02/10/17 18:00 95 116/67 97 Room Air 02/10/17 17:00 87 109/65 96 Room Air 02/10/17 16:19 100.6 02/10/17 16:00 96 02/10/17 16:00 100.6 89 14 111/61 98 Room Air 02/10/17 15:00 84 109/65 97 Room Air 02/10/17 14:00 93 110/63 97 Room Air 02/10/17 13:00 87 02/10/17 13:00 88 116/65 95 Room Air 02/10/17 12:56 100.1 02/10/17 12:00 96 02/10/17 12:00 100.3 93 18 115/66 97 Room Air 02/10/17 11:00 82 120/68 96 Room Air 02/10/17 10:00 86 109/65 97 Room Air 02/10/17 09:00 89 121/56 97 Room Air I & O 02/11/17 07:00 Intake Total 4700 ml Output Total 3300 ml Balance 1400 ml Capillary Refill : Less Than 3 SecondsLess Than 3 Seconds General Appearance: WD/WN, Mild Distress HEENT: PERRL/EOMI, Normal ENT Inspection, Pharynx Normal Neck: Full Range of Motion, Normal Inspection, Non Tender, Supple Respiratory: No Accessory Muscle Use, No Respiratory Distress Cardiovascular: Regular Rate, Rhythm Gastrointestinal: normal bowel sounds, soft, tenderness (increased tenderness around left lower quadrant and now tenderness in rest of abdomen) Extremity: Normal Capillary Refill, Normal Inspection, Normal Range of Motion, Non Tender, No Calf Tenderness, No Pedal Edema Neurologic/Psychiatric: Alert, Oriented x3, No Motor/Sensory Deficits, Normal Mood/Affect Skin: Warm/Dry Lymphatic: No Adenopathy Results Lab Laboratory Tests 02/11/17 03:39: White Blood Count 12.4H, Red Blood Count 4.79, Hemoglobin 13.4, Hematocrit 43, Mean Corpuscular Volume 89, Mean Corpuscular Hemoglobin 28, Mean Corpuscular Hemoglobin Concent 31L, Red Cell Distribution Width 13.9, Platelet Count 297, Mean Platelet Volume 9.6, Neutrophils (%) (Auto) 82H, Lymphocytes (%) (Auto) 6L , Monocytes (%) (Auto) 9, Eosinophils (%) (Auto) 3, Basophils (%) (Auto) 0, Neutrophils # (Auto) 10.2H, Lymphocytes # (Auto) 0.7L, Monocytes # (Auto) 1.1H, Eosinophils # (Auto) 0.4H, Basophils # (Auto) 0.0, Sodium Level 140, Potassium Level 3.7, Chloride Level 106, Carbon Dioxide Level 22, Anion Gap 12, Blood Urea Nitrogen 8, Creatinine 0.80, Estimat Glomerular Filtration Rate > 60, BUN/ Creatinine Ratio 10, Glucose Level 70, Calcium Level 8.8, Phosphorus Level 2.3, Magnesium Level 1.9 Microbiology 02/09/17 Blood Culture - Preliminary, Resulted No growth Assessment/Plan Assessment/Plan Assessment/Plan 36 year old male with acute diverticulitis with perforation/abscess, sepsis patient exam worsening pain and fever overnight Patient was discussed the risks and benefits of exploratory laparotomy possible colectomy possible end colostomy all other indicated procedures He understands risks of continue conservative management and operative management. He wishes to proceed with surgical intervention. Patient to OR today. Clinical Quality Measures DVT/VTE Risk/Contraindication: RFS Level Per Nursing on Admit: 1=Low/No VTE PPX AB SHEIKH DO Feb 11, 2017 09:03
[2017-02-11] MEDS: fentaNYL INJECTION 100 MCG/2 ML AMP IV PRN ×3 (09:47→21:07)
[2017-02-11] MEDS ORDERED: LACTATED RINGERS 1,000 ML IV PRN (10:21)
[2017-02-11] MEDS ORDERED: ceFAZolin 2 GM/50 ML NS 50 ML IV NR (10:45)
[2017-02-11] MEDS ORDERED: LIDOCAINE 1% INJ 20 ML (XYLOCAINE) VIAL ONE (10:54)
[2017-02-11] MEDS ORDERED: BUPIVACAINE 0.5% 30 ML (SENSORCAINE) VIAL ONE (10:54)
[2017-02-11] MEDS ORDERED: ROCURONIUM 50 MG/5 ML (ZEMURON) VIAL IV ONE (10:59)
[2017-02-11] MEDS ORDERED: proPOfol 200 MG/20 ML (DIPRIVAN) VIAL IV ONE (10:59)
[2017-02-11] MEDS ORDERED: LACTATED RINGERS 1,000 ML IV ONE ×3 (10:59→13:08)
[2017-02-11] MEDS ORDERED: fentaNYL INJECTION 250 MCG/5 ML AMP ONE (11:00)
[2017-02-11] MEDS ORDERED: MIDAZOLAM 2 MG/2 ML (VERSED) VIAL ONE (11:00)
[2017-02-11] MEDS: LACTATED RINGERS 1,000 ML IV SCH ×3 (11:18→13:34)
[2017-02-11] MEDS ORDERED: ONDANSETRON 4 MG/2 ML (SDV) Z0FRAN ONE (11:53)
[2017-02-11] MEDS ORDERED: DEXAMETHASONE PF 10 MG/ML (DECADRON) VIAL ONE (11:53)
[2017-02-11] MEDS ORDERED: LIDOCAINE PF 2% 10 ML (XYLOCAINE) AMP ONE (11:53)
[2017-02-11] MEDS ORDERED: SEVOFLURANE (ULTANE) 15 ML INHAL SOLN ONE (13:08)
[2017-02-11] MEDS ORDERED: GLYCOPYRROLATE 0.2 MG/ML (ROBINUL) 2 ML VIAL ONE (13:09)
[2017-02-11] MEDS ORDERED: NEOSTIGMINE (BLOXIVERZ ) 1 MG/1ML 10 ML VIAL ONE (13:09)
[2017-02-11] MEDS ORDERED: fentaNYL INJECTION 100 MCG/2 ML AMP ONE (13:36)
[2017-02-11] MEDS ORDERED: morphine INJ 10 MG/ML 1ML (SYR OR VIAL) ONE (13:44)
[2017-02-11] MEDS: morphine INJ 10 MG/ML 1ML (SYR OR VIAL) IVP PRN ×2 (14:07→14:12)
[2017-02-11] MEDS ORDERED: ONDANSETRON 4 MG/2 ML (SDV) Z0FRAN IVP PRN (14:15)
--- NOTE | 2017-02-11 14:19 | Progress Note-Post Operative ---
Post-Operative Progess Note Surgeon (s)/Electroencephalographic Technologist (s) Surgeon AB SHEIKH DO Electroencephalographic Technologist: Dr. Tavarez Pre-Operative Diagnosis sigmoid diverticulitis with perforation Post-Operative Diagnosis same Post-Op Procedure Note Date of Procedure: Feb 11, 2017 Name of Procedure Performed: exploratory laparotomy, sigmoid resection with end colostomy (chris's) Description of the Procedure: see note Findings of the Procedure sigmoid diverticulitis with perforation Anesthesia Type general Estimated blood loss (mL): minimal Specimen(s) collected/removed sigmoid colon AB SHEIKH DO Feb 11, 2017 14:19
[2017-02-11] MEDS ORDERED: HYDROmorphone (DILAUDID) 2 MG/ML VIAL ONE (14:20)
[2017-02-11] MEDS: HYDROmorphone (DILAUDID) 2 MG/ML VIAL IVP PRN ×3 (14:30→15:00)
[2017-02-11] MEDS: FAMOTIDINE 20MG/2ML IV (PEPCID) IVP SCH (17:41)
[2017-02-12] VITALS (25 sets, daily range): BP systolic 96–118; BP diastolic 51–78
[2017-02-12] MEDS: fentaNYL INJECTION 100 MCG/2 ML AMP IV PRN ×11 (00:15→22:27)
[2017-02-12] MEDS: NS IV 1000 ML 1,000 ML IV SCH ×3 (03:48→16:48)
[2017-02-12] MEDS: PIPERACILLIN/TAZOBACTAM 4.5 GM/NS 100 ML IVPB IV SCH ×4 (03:48→10:56)
[2017-02-12 04:37] LABS: BASOPHILS % (AUTO) 0 % (0-10); EOSINOPHILS % (AUTO) 0 % (0-10); LYMPHOCYTES # (AUTO) 0.3 X 10^3 (1.0-4.0); LYMPHOCYTES % (AUTO) 2 % (12-44); MEAN CORPUSCULAR HEMOGLOBIN 29 PG (25-34); MEAN CORPUSCULAR HGB CONC 33 G/DL (32-36); MEAN CORPUSCULAR VOLUME 88 FL (80-99); MEAN PLATELET VOLUME 9.5 FL (7.4-10.4); MONOCYTES # (AUTO) 1.1 X 10^3 (0.0-1.0); MONOCYTES % (AUTO) 7 % (0-12); NEUTROPHILS # (AUTO) 15.3 X 10^3 (1.8-7.8); NEUTROPHILS % (AUTO) 92 % (42-75); PLATELET COUNT 342 10^3/uL (130-400); RED BLOOD COUNT 4.53 10^6/uL (4.35-5.85); RED CELL DISTRIBUTION WIDTH 13.4 % (10.0-14.5); WHITE BLOOD COUNT 16.7 10^3/uL (4.3-11.0)
[2017-02-12] MEDS: metroNIDAZOLE 500 MG/100 ML IVPB (PRE-MIX) IV SCH ×2 (05:07→14:29)
[2017-02-12] MEDS: CATHETER FLUSH 10 ML SYR IV SCH ×3 (05:07→19:59)
[2017-02-12 05:09] LABS: ANION GAP 10 MMOL/L (5-14); BLOOD UREA NITROGEN 8 MG/DL (7-18); BUN/CREATININE RATIO 10; CALCIUM 8.6 MG/DL (8.5-10.1); CARBON DIOXIDE 22 MMOL/L (21-32); CHLORIDE 106 MMOL/L (98-107); CREATININE SERUM 0.77 MG/DL (0.60-1.30); GFR ESTIMATED > 60; GLUCOSE 108 MG/DL (70-105); MAGNESIUM 1.9 MG/DL (1.8-2.4); PHOSPHORUS 3.1 MG/DL (2.3-4.7); POTASSIUM 4.6 MMOL/L (3.6-5.0); SODIUM 138 MMOL/L (135-145)
[2017-02-12] MEDS: MAGNESIUM 1 GM/100 ML IVPB 100 ML IV SCH (06:11)
[2017-02-12] MEDS: KCL 20 MEQ TAB (K-DUR) PO SCH (06:11)
[2017-02-12] MEDS: POTASSIUM CL 10MEQ/50ML IVPB 50 ML IV SCH (06:11)
--- NOTE | 2017-02-12 07:28 | Pulmonary Progress Note ---
Exam Exam Vital Signs Date Time Temp Pulse Resp B/P (MAP) Pulse Ox O2 Delivery O2 Flow Rate FiO2 02/12/17 06:00 89 20 109/67 93 High Flow N/C 3.00 02/12/17 05:00 74 13 97/57 94 High Flow N/C 3.00 02/12/17 04:00 96 3.00 02/12/17 04:00 62 23 100/60 97 High Flow N/C 3.00 02/12/17 03:00 74 15 114/67 95 High Flow N/C 3.00 02/12/17 02:00 72 22 116/69 94 High Flow N/C 3.00 02/12/17 01:09 77 02/12/17 01:00 70 16 117/64 95 High Flow N/C 3.00 02/12/17 00:00 96 3.00 02/12/17 00:00 98.0 High Flow N/C 3.00 02/12/17 00:00 64 20 107/60 96 High Flow N/C 3.00 02/11/17 23:09 73 13 103/55 91 High Flow N/C 3.00 02/11/17 22:00 76 12 98/62 93 High Flow N/C 3.00 02/11/17 21:00 64 16 113/63 99 High Flow N/C 3.00 02/11/17 20:00 64 19 114/64 98 High Flow N/C 3.00 02/11/17 20:00 96 3.00 02/11/17 19:06 98.8 High Flow N/C 3.00 02/11/17 19:00 71 19 132/92 91 High Flow N/C 3.00 02/11/17 19:00 75 02/11/17 18:00 62 17 109/69 98 Nasal Cannula 3.00 02/11/17 17:00 65 11 103/62 97 Nasal Cannula 3.00 02/11/17 16:00 81 9 112/67 97 Nasal Cannula 3.00 02/11/17 15:20 96 3.00 02/11/17 15:15 97.6 69 12 96/48 96 Nasal Cannula 3.00 02/11/17 15:00 97.1 02/11/17 14:40 97.1 02/11/17 14:30 97.1 02/11/17 14:30 97.1 02/11/17 14:12 97.1 02/11/17 14:07 97.1 02/11/17 11:00 75 117/67 Room Air 02/11/17 10:00 83 135/76 97 Room Air 02/11/17 09:00 88 123/71 Room Air 02/11/17 08:00 98.7 72 18 123/71 96 Room Air 02/11/17 08:00 95 I & O 02/12/17 07:00 Intake Total 5630 ml Output Total 3250 ml Balance 2380 ml General Appearance: WD/WN, Mild Distress HEENT: PERRL/EOMI, Normal ENT Inspection, Pharynx Normal Neck: Full Range of Motion, Normal Inspection, Non Tender, Supple Respiratory: No Accessory Muscle Use, No Respiratory Distress Cardiovascular: Regular Rate, Rhythm Gastrointestinal: normal bowel sounds, soft, tenderness (increased tenderness around left lower quadrant and now tenderness in rest of abdomen) Extremity: Normal Capillary Refill, Normal Inspection, Normal Range of Motion, Non Tender, No Calf Tenderness, No Pedal Edema Neurologic/Psychiatric: Alert, Oriented x3, No Motor/Sensory Deficits, Normal Mood/Affect Skin: Warm/Dry Lymphatic: No Adenopathy Results Lab Laboratory Tests 02/11/17 03:39 02/12/17 04:02 Assessment/Plan Assessment/Plan Acute diverticulitis with abscess and perforation s/p POD#1 exploratory laparotomy, sigmoid resection with end colostomy (chris's) -Dr. Velasquez is following -NPO sepsis --IV hydration -Zosyn, flagyl Clinical Quality Measures DVT/VTE Risk/Contraindication: RFS Level Per Nursing on Admit: 1=Low/No VTE PPX MACK ALVARADO DO Feb 12, 2017 07:28
[2017-02-12] MEDS: FAMOTIDINE 20MG/2ML IV (PEPCID) IVP SCH (09:38)
--- NOTE | 2017-02-12 09:42 | Diagnostic Imaging Report ---
EXAMINATION: Portable upright radiograph of the chest. INDICATION: Dyspnea. FINDINGS: The lungs demonstrate mild bibasilar opacities, favored to be atelectasis. The heart size is normal. No effusion or pneumothorax. The mediastinum and carolyn appear unremarkable. When compared to 02/11/2017, the basilar opacities seen are new. IMPRESSION: Development of bibasilar subsegmental opacities, favored to be atelectasis. Dictated by: Dictated on workstation # [id number]
--- NOTE | 2017-02-12 10:23 | Progress Note ---
Subjective Subjective/Events-last exam Patient is resting in bed. No distress is noted. Alert and oriented x 3. Objective Exam Vital Signs Date Time Temp Pulse Resp B/P (MAP) Pulse Ox O2 Delivery O2 Flow Rate FiO2 02/12/17 08:07 98.6 02/12/17 08:00 80 13 106/58 96 High Flow N/C 3.00 02/12/17 07:00 81 02/12/17 07:00 78 17 105/60 95 High Flow N/C 3.00 02/12/17 06:00 89 20 109/67 93 High Flow N/C 3.00 02/12/17 05:00 74 13 97/57 94 High Flow N/C 3.00 02/12/17 04:00 96 3.00 02/12/17 04:00 62 23 100/60 97 High Flow N/C 3.00 02/12/17 03:00 74 15 114/67 95 High Flow N/C 3.00 02/12/17 02:00 72 22 116/69 94 High Flow N/C 3.00 02/12/17 01:09 77 02/12/17 01:00 70 16 117/64 95 High Flow N/C 3.00 02/12/17 00:00 96 3.00 02/12/17 00:00 98.0 High Flow N/C 3.00 02/12/17 00:00 64 20 107/60 96 High Flow N/C 3.00 02/11/17 23:09 73 13 103/55 91 High Flow N/C 3.00 02/11/17 22:00 76 12 98/62 93 High Flow N/C 3.00 02/11/17 21:00 64 16 113/63 99 High Flow N/C 3.00 02/11/17 20:00 64 19 114/64 98 High Flow N/C 3.00 02/11/17 20:00 96 3.00 02/11/17 19:06 98.8 High Flow N/C 3.00 02/11/17 19:00 71 19 132/92 91 High Flow N/C 3.00 02/11/17 19:00 75 02/11/17 18:00 62 17 109/69 98 Nasal Cannula 3.00 02/11/17 17:00 65 11 103/62 97 Nasal Cannula 3.00 02/11/17 16:00 81 9 112/67 97 Nasal Cannula 3.00 02/11/17 15:20 96 3.00 02/11/17 15:15 97.6 69 12 96/48 96 Nasal Cannula 3.00 02/11/17 15:00 97.1 02/11/17 14:40 97.1 02/11/17 14:30 97.1 02/11/17 14:30 97.1 02/11/17 14:12 97.1 02/11/17 14:07 97.1 02/11/17 11:00 75 117/67 Room Air I & O 02/12/17 07:00 Intake Total 5630 ml Output Total 3250 ml Balance 2380 ml Capillary Refill : Less Than 3 SecondsNONE General Appearance: WD/WN, Mild Distress HEENT: PERRL/EOMI, Normal ENT Inspection, Pharynx Normal Neck: Full Range of Motion, Normal Inspection, Non Tender, Supple Respiratory: No Accessory Muscle Use, No Respiratory Distress Cardiovascular: Regular Rate, Rhythm Gastrointestinal: soft, tenderness (Tenderness around the incision site. ) Extremity: Non Tender, No Calf Tenderness, No Pedal Edema Neurologic/Psychiatric: Alert, Oriented x3, No Motor/Sensory Deficits, Normal Mood/Affect Skin: Warm/Dry Lymphatic: No Adenopathy Results Lab Laboratory Tests Test 02/11/17 03:39 02/12/17 04:02 Range/Units White Blood Count 12.4 H 16.7 H 4.3-11.0 10^3/uL Red Blood Count 4.79 4.53 4.35-5.85 10^6/uL Hemoglobin 13.4 13.2 L 13.3-17.7 G/DL Hematocrit 43 40 40-54 % Mean Corpuscular Volume 89 88 80-99 FL Mean Corpuscular Hemoglobin 28 29 25-34 PG Mean Corpuscular Hemoglobin Concent 31 L 33 32-36 G/DL Red Cell Distribution Width 13.9 13.4 10.0-14.5 % Platelet Count 297 342 130-400 10^3/uL Mean Platelet Volume 9.6 9.5 7.4-10.4 FL Neutrophils (%) (Auto) 82 H 92 H 42-75 % Lymphocytes (%) (Auto) 6 L 2 L 12-44 % Monocytes (%) (Auto) 9 7 0-12 % Eosinophils (%) (Auto) 3 0 0-10 % Basophils (%) (Auto) 0 0 0-10 % Neutrophils # (Auto) 10.2 H 15.3 H 1.8-7.8 X 10^3 Lymphocytes # (Auto) 0.7 L 0.3 L 1.0-4.0 X 10^3 Monocytes # (Auto) 1.1 H 1.1 H 0.0-1.0 X 10^3 Eosinophils # (Auto) 0.4 H 0.0 0.0-0.3 10^3/uL Basophils # (Auto) 0.0 0.0 0.0-0.1 10^3/uL Sodium Level 140 138 135-145 MMOL/L Potassium Level 3.7 4.6 3.6-5.0 MMOL/L Chloride Level 106 106 98-107 MMOL/L Carbon Dioxide Level 22 22 21-32 MMOL/L Anion Gap 12 10 5-14 MMOL/L Blood Urea Nitrogen 8 8 7-18 MG/DL Creatinine 0.80 0.77 0.60-1.30 MG/DL Estimat Glomerular Filtration Rate > 60 > 60 BUN/Creatinine Ratio 10 10 Glucose Level 70 108 H 70-105 MG/DL Calcium Level 8.8 8.6 8.5-10.1 MG/DL Phosphorus Level 2.3 3.1 2.3-4.7 MG/DL Magnesium Level 1.9 1.9 1.8-2.4 MG/DL Laboratory Tests 02/12/17 04:02: White Blood Count 16.7H, Red Blood Count 4.53, Hemoglobin 13.2L, Hematocrit 40, Mean Corpuscular Volume 88, Mean Corpuscular Hemoglobin 29, Mean Corpuscular Hemoglobin Concent 33, Red Cell Distribution Width 13.4, Platelet Count 342, Mean Platelet Volume 9.5, Neutrophils (%) (Auto) 92H, Lymphocytes (%) (Auto) 2L , Monocytes (%) (Auto) 7, Eosinophils (%) (Auto) 0, Basophils (%) (Auto) 0, Neutrophils # (Auto) 15.3H, Lymphocytes # (Auto) 0.3L, Monocytes # (Auto) 1.1H, Eosinophils # (Auto) 0.0, Basophils # (Auto) 0.0, Sodium Level 138, Potassium Level 4.6, Chloride Level 106, Carbon Dioxide Level 22, Anion Gap 10, Blood Urea Nitrogen 8, Creatinine 0.77, Estimat Glomerular Filtration Rate > 60, BUN/ Creatinine Ratio 10, Glucose Level 108H, Calcium Level 8.6, Phosphorus Level 3.1 , Magnesium Level 1.9 Microbiology 02/09/17 Blood Culture - Preliminary, Resulted No growth 02/10/17 MRSA Screen - Final, Complete MRSA not isolated Assessment/Plan Assessment/Plan Assessment/Plan S/P exploratory laparotomy, sigmoid resection with end colostomy (chris's) Continue to monitor patient labs and vital signs. Great output. Pain management Eva 02/12/17 - Patient pain controlled. No flatus or bowel movement through ostomy. Midline incision loosely approximated with renae drain in. colostomy slightly edematous, pink, slightly retracted assessment as above pain control IS baker for I/O accurately dc baker in am sips of clears Clinical Quality Measures DVT/VTE Risk/Contraindication: RFS Level Per Nursing on Admit: 1=Low/No VTE PPX SHEREE OG ROBOTIC MACHINE OPERATOR Feb 12, 2017 10:23 AB SHEIKH DO Feb 13, 2017 09:48
--- NOTE | 2017-02-12 12:59 | Anesthesia-General Post-Op ---
General Patient Condition Mental Status/LOC: Same as Preop Cardiovascular: Satisfactory Nausea/Vomiting: Absent Respiratory: Satisfactory Pain: Controlled Complications: Absent Post Op Complications Complications None Follow Up Care/Instructions Patient Instructions None needed. Anesthesia/Patient Condition Patient Condition Patient is doing well, no complaints, stable vital signs, no apparent adverse anesthesia problems. No complications reported per nursing. ALANA FELDER CRNA Feb 12, 2017 12:59
[2017-02-12] MEDS: ENOXAPARIN 40 MG/0.4 ML (LOVENOX) SYR SC SCH (15:31)
[2017-02-12] MEDS: PIPERACILLIN SODIUM/TAZOBACTAM 4.5 GM in NS (IVPB) 100 ML IV SCH (18:48)
[2017-02-12] MEDS: LACTATED RINGERS 1,000 ML IV SCH (19:59)
[2017-02-12] MEDS: metroNIDAZOLE 500MG/100ML IVPB 100 ML IV SCH (22:26)
[2017-02-13] VITALS (14 sets, daily range): BP systolic 102–139; BP diastolic 62–93
[2017-02-13] MEDS: NS IV 1000 ML 1,000 ML IV SCH ×4 (00:45→17:29)
[2017-02-13] MEDS: fentaNYL INJECTION 100 MCG/2 ML AMP IV PRN ×10 (00:45→21:42)
[2017-02-13] MEDS: PIPERACILLIN SODIUM/TAZOBACTAM 4.5 GM in NS (IVPB) 100 ML IV SCH ×3 (02:53→18:45)
[2017-02-13 04:48] LABS: BASOPHILS % (AUTO) 0 % (0-10); EOSINOPHILS # (AUTO) 0.3 10^3/uL (0.0-0.3); EOSINOPHILS % (AUTO) 2 % (0-10); LYMPHOCYTES % (AUTO) 7 % (12-44); MEAN CORPUSCULAR HEMOGLOBIN 29 PG (25-34); MEAN CORPUSCULAR HGB CONC 32 G/DL (32-36); MEAN CORPUSCULAR VOLUME 88 FL (80-99); MEAN PLATELET VOLUME 9.4 FL (7.4-10.4); MONOCYTES # (AUTO) 1.3 X 10^3 (0.0-1.0); MONOCYTES % (AUTO) 9 % (0-12); NEUTROPHILS # (AUTO) 12.3 X 10^3 (1.8-7.8); NEUTROPHILS % (AUTO) 82 % (42-75); PLATELET COUNT 336 10^3/uL (130-400); RED BLOOD COUNT 4.67 10^6/uL (4.35-5.85); RED CELL DISTRIBUTION WIDTH 13.6 % (10.0-14.5)
[2017-02-13 05:14] LABS: ANION GAP 11 MMOL/L (5-14); BLOOD UREA NITROGEN 7 MG/DL (7-18); BUN/CREATININE RATIO 10; CALCIUM 8.2 MG/DL (8.5-10.1); CARBON DIOXIDE 20 MMOL/L (21-32); CHLORIDE 108 MMOL/L (98-107); CREATININE SERUM 0.73 MG/DL (0.60-1.30); GFR ESTIMATED > 60; GLUCOSE 83 MG/DL (70-105); MAGNESIUM 1.8 MG/DL (1.8-2.4); POTASSIUM 3.7 MMOL/L (3.6-5.0); SODIUM 139 MMOL/L (135-145)
[2017-02-13] MEDS: POTASSIUM CL 10MEQ/50ML IVPB 50 ML IV SCH (05:35)
[2017-02-13] MEDS: CATHETER FLUSH 10 ML SYR IV SCH ×3 (05:35→21:42)
[2017-02-13] MEDS: LACTATED RINGERS 1,000 ML IV SCH ×2 (05:35→16:11)
[2017-02-13] MEDS: MAGNESIUM 1 GM/100 ML IVPB 100 ML IV SCH (05:36)
[2017-02-13] MEDS: KCL 20 MEQ TAB (K-DUR) PO SCH (05:36)
[2017-02-13] MEDS: metroNIDAZOLE 500MG/100ML IVPB 100 ML IV SCH ×3 (06:31→21:42)
--- NOTE | 2017-02-13 06:38 | Pulmonary Progress Note ---
Subjective Subjective/Events-last exam No complications noted. Exam Exam Vital Signs Date Time Temp Pulse Resp B/P (MAP) Pulse Ox O2 Delivery O2 Flow Rate FiO2 02/13/17 06:00 72 14 120/72 94 Room Air 02/13/17 05:00 81 13 102/62 93 Room Air 02/13/17 04:00 84 14 103/66 94 Room Air 02/13/17 03:00 88 14 120/67 96 Room Air 02/13/17 02:00 96 19 117/76 93 Room Air 02/13/17 01:07 80 02/13/17 01:00 92 13 114/68 90 Room Air 02/13/17 00:00 80 12 123/78 95 Room Air 02/12/17 23:00 82 14 118/72 95 Room Air 02/12/17 22:00 102 24 117/68 94 Room Air 02/12/17 21:00 90 20 115/69 94 02/12/17 20:00 93 19 114/71 94 02/12/17 19:40 99.2 92 18 114/63 95 Room Air 02/12/17 19:00 96 20 114/63 96 02/12/17 19:00 85 02/12/17 18:31 3.00 02/12/17 18:00 96 17 96/51 94 High Flow N/C 3.00 02/12/17 17:24 99.4 02/12/17 17:00 96 21 100/78 95 High Flow N/C 3.00 02/12/17 16:00 82 16 109/62 98 High Flow N/C 3.00 02/12/17 15:00 90 27 113/67 96 High Flow N/C 3.00 02/12/17 14:00 84 14 106/64 94 High Flow N/C 3.00 02/12/17 13:00 89 02/12/17 13:00 76 22 104/72 96 High Flow N/C 3.00 02/12/17 12:00 84 21 110/61 96 High Flow N/C 3.00 02/12/17 12:00 98.7 02/12/17 11:00 93 28 109/63 97 High Flow N/C 3.00 02/12/17 10:00 80 21 109/62 95 High Flow N/C 3.00 02/12/17 09:00 79 19 116/64 96 High Flow N/C 3.00 02/12/17 08:07 98.6 02/12/17 08:00 80 13 106/58 96 High Flow N/C 3.00 02/12/17 07:00 81 02/12/17 07:00 78 17 105/60 95 High Flow N/C 3.00 I & O 02/13/17 07:00 Intake Total 3800 ml Output Total 2600 ml Balance 1200 ml General Appearance: No Apparent Distress, WD/WN HEENT: PERRL/EOMI, Normal ENT Inspection, Pharynx Normal Neck: Full Range of Motion, Normal Inspection, Non Tender, Supple Respiratory: No Accessory Muscle Use, No Respiratory Distress Cardiovascular: Regular Rate, Rhythm Gastrointestinal: soft, tenderness (Tenderness around the incision site. ) Extremity: Non Tender, No Calf Tenderness, No Pedal Edema Neurologic/Psychiatric: Alert, Oriented x3, No Motor/Sensory Deficits, Normal Mood/Affect Skin: Warm/Dry Lymphatic: No Adenopathy Results Lab Laboratory Tests 02/12/17 04:02 02/13/17 04:25 Assessment/Plan Assessment/Plan Acute diverticulitis with abscess and perforation s/p POD#1 exploratory laparotomy, sigmoid resection with end colostomy (chris's) -Dr. Velasquez is following -NPO sepsis --IV hydration -Zosyn, flagyl Atelectasis -IS -Increase activity Transfer out of ICU to floor and D/C baker when ok with Dr. Velasquez Clinical Quality Measures DVT/VTE Risk/Contraindication: RFS Level Per Nursing on Admit: 1=Low/No VTE PPX MACK ALVARADO DO Feb 13, 2017 06:38
[2017-02-13] MEDS: FAMOTIDINE 20MG/2ML IV (PEPCID) IVP SCH (08:51)
--- NOTE | 2017-02-13 08:54 | Progress Note ---
Subjective Subjective/Events-last exam Patient is resting in bed. Even respirations. No distress. Patient reports that he is passing gas. Objective Exam Vital Signs Date Time Temp Pulse Resp B/P (MAP) Pulse Ox O2 Delivery O2 Flow Rate FiO2 02/13/17 08:00 99.0 79 14 129/93 97 Room Air 02/13/17 07:00 78 02/13/17 06:00 72 14 120/72 94 Room Air 02/13/17 05:00 81 13 102/62 93 Room Air 02/13/17 04:00 84 14 103/66 94 Room Air 02/13/17 03:00 88 14 120/67 96 Room Air 02/13/17 02:00 96 19 117/76 93 Room Air 02/13/17 01:07 80 02/13/17 01:00 92 13 114/68 90 Room Air 02/13/17 00:00 80 12 123/78 95 Room Air 02/12/17 23:00 82 14 118/72 95 Room Air 02/12/17 22:00 102 24 117/68 94 Room Air 02/12/17 21:00 90 20 115/69 94 02/12/17 20:00 93 19 114/71 94 02/12/17 19:40 99.2 92 18 114/63 95 Room Air 02/12/17 19:00 96 20 114/63 96 02/12/17 19:00 85 02/12/17 18:31 3.00 02/12/17 18:00 96 17 96/51 94 High Flow N/C 3.00 02/12/17 17:24 99.4 02/12/17 17:00 96 21 100/78 95 High Flow N/C 3.00 02/12/17 16:00 82 16 109/62 98 High Flow N/C 3.00 02/12/17 15:00 90 27 113/67 96 High Flow N/C 3.00 02/12/17 14:00 84 14 106/64 94 High Flow N/C 3.00 02/12/17 13:00 89 02/12/17 13:00 76 22 104/72 96 High Flow N/C 3.00 02/12/17 12:00 84 21 110/61 96 High Flow N/C 3.00 02/12/17 12:00 98.7 02/12/17 11:00 93 28 109/63 97 High Flow N/C 3.00 02/12/17 10:00 80 21 109/62 95 High Flow N/C 3.00 02/12/17 09:00 79 19 116/64 96 High Flow N/C 3.00 I & O 02/13/17 07:00 Intake Total 3900 ml Output Total 3500 ml Balance 400 ml Capillary Refill : Less Than 3 SecondsLess Than 3 Seconds General Appearance: No Apparent Distress, WD/WN HEENT: PERRL/EOMI, Normal ENT Inspection, Pharynx Normal Neck: Full Range of Motion, Normal Inspection, Non Tender, Supple Respiratory: No Accessory Muscle Use, No Respiratory Distress Cardiovascular: Regular Rate, Rhythm Gastrointestinal: soft, tenderness (Tenderness around the incision site. ) Extremity: Non Tender, No Calf Tenderness, No Pedal Edema Neurologic/Psychiatric: Alert, Oriented x3, No Motor/Sensory Deficits, Normal Mood/Affect Skin: Warm/Dry, Other (Patient has midline incision with drain. minimal drainage noted with Drainage. ) Lymphatic: No Adenopathy Results Lab Laboratory Tests 02/13/17 04:25: White Blood Count 15.0H, Red Blood Count 4.67, Hemoglobin 13.3, Hematocrit 41, Mean Corpuscular Volume 88, Mean Corpuscular Hemoglobin 29, Mean Corpuscular Hemoglobin Concent 32, Red Cell Distribution Width 13.6, Platelet Count 336, Mean Platelet Volume 9.4, Neutrophils (%) (Auto) 82H, Lymphocytes (%) (Auto) 7L , Monocytes (%) (Auto) 9, Eosinophils (%) (Auto) 2, Basophils (%) (Auto) 0, Neutrophils # (Auto) 12.3H, Lymphocytes # (Auto) 1.0, Monocytes # (Auto) 1.3H, Eosinophils # (Auto) 0.3, Basophils # (Auto) 0.0, Sodium Level 139, Potassium Level 3.7, Chloride Level 108H, Carbon Dioxide Level 20L, Anion Gap 11, Blood Urea Nitrogen 7, Creatinine 0.73, Estimat Glomerular Filtration Rate > 60, BUN/ Creatinine Ratio 10, Glucose Level 83, Calcium Level 8.2L, Phosphorus Level 2.0L , Magnesium Level 1.8 Microbiology 02/09/17 Blood Culture - Preliminary, Resulted No growth 02/10/17 MRSA Screen - Final, Complete MRSA not isolated Assessment/Plan Assessment/Plan Assessment/Plan S/P exploratory laparotomy, sigmoid resection with end colostomy (chris's) Transfer patient to 4th floor. Passing gas- start on sips of clear. Physical Therapy Continue to monitor patient labs and vital signs. Eva- Patient some flatus out ostomy. pain controlled. WBC coming down ostomy pink slightly retracted abdomen incisional tenderness renae drain in place assessment as above transfer to floor, start on clears physical therapy zosyn/ flagyl incentive spirometry Clinical Quality Measures DVT/VTE Risk/Contraindication: RFS Level Per Nursing on Admit: 1=Low/No VTE PPX SHEREE OG APRN Feb 13, 2017 08:54 AB SHEIKH DO Feb 13, 2017 09:50
--- NOTE | 2017-02-13 09:03 | Diagnostic Imaging Report ---
EXAMINATION: Portable upright radiograph of the chest. INDICATION: Dyspnea. FINDINGS: There is bilateral basilar atelectasis. The heart size is normal. There is no pneumothorax. There is question of a small left pleural effusion. The mediastinum and carolyn appear unremarkable. IMPRESSION: Stable subsegmental bibasilar opacities, likely atelectasis. Question of a tiny left pleural effusion. Dictated by: Dictated on workstation # [id number]
--- NOTE | 2017-02-13 11:16 | Progress Note-Hospitalist ---
Progress Note HPI/CC on Admission CC: Diverticulitis with abscess HPI: This is a 36yoWM w/no GI hx that presents to the ER w/severe abdominal pain and fever. CT scan revealed diverticulitis with abscess and DR Velasquez has consulted me for management of sepsis. Currently he has just received some pain medication and does feel much better. He does have a history one month ago of some abdominal pain that lasts for one day and he thought he was a hernia. He has no family history of diverticulosis or colon resections. He works at [employer] for the past 3 years. Progress Notes/Assess & Plan Date Seen 02/13/17 Admission Dx/Process Assessment: Acute diverticulitis with abscess formation with sepsis with elevated lactic acid Fever Leukocytosis Diagonsis/Assessment & Plan Chart Review: WBC 15 Hgb stable CMP normal airplane flight attendant supervisor: Pt had surgery diverting colostomy. Pt had an abscess Pt will be moved down to 4th floor. Patient Interview: Pt has not been able to ambulate. Pt has been on ice chips and no other food or drink. Physical exam was stable. Pt has been using IS. No fever, vital signs stable, pleasant, improved Regular rate and rhythm, clear to auscultation bilaterally Bowel sounds noted Assessment: Acute abdominal pain due to diverticulitis status post exploration and diverting colostomy due to abscess formation POD # 2 Ileus post op Leukocytosis Overall debility difficult and slow to recover Plan: IV fluids IV antibiotics Pain medication SCDs We'll follow with you. PT to get OOB Scribed by Isaias Carrington under the direct supervision of Dr. Mai. TINO MAI DO Feb 13, 2017 11:16
[2017-02-13] MEDS: ENOXAPARIN 40 MG/0.4 ML (LOVENOX) SYR SC SCH (14:31)
--- NOTE | 2017-02-13 15:30 | Physical Therapy Evaluation ---
PT Evaluation-General Medical Diagnosis Admission Date Feb 09, 2017 at 21:16 Medical Diagnosis: weakness Onset Date: Feb 09, 2017 Therapy Diagnosis Therapy Diagnosis: impaired mobility, endurance Height/Weight Height (Feet): 5 Height (Inches): 10.00 Weight (Pounds): 223 Weight (Ounces): 3.0 Precautions Precautions/Isolations: Fall Prevention, Standard Precautions Referral Physician: Maricruz Mai DO Reason for Referral: Evaluation/Treatment Medical History Additional Medical History ear surgery Current History Patient went to the ER with severe abdominal pain and fever, had diverticulitis and abscess, had a colostomy Reviewed History: Yes Social History Home: Apartment Current Living Status: Children Entry Into Home: Stairs With Railing PT Steps Into Home: 3 Prior/Core FIM Prior Level of Function Functional [place] Measure 0=Not Assessed/NA 4=Minimal Assistance 1=Total Assistance 5=Supervision or Setup 2=Maximal Assistance 6=Modified [place] 3=Moderate Assistance 7=Complete [place] Bed Mobility: 7 Transfers (B,C,W/C) (FIM): 7 Gait: 7 PT Evaluation-Current Subjective Patient in bed pre tx, agrees to PT, states he has pain of 4/10 in abdomen due to surgery. Pt/Family Goals to be independent at home Objective Patient Orientation: Person, Place, Situation Attachments: Colostomy/Ileostomy, IV ROM/Strength ROM Lower Extremities WNL Strenght Lower Extremities 5/5 gross bilateral lower extremities Neuromuscular (Tone, Coordination, Reflexes) WNL Sensory Vision: Wears Glasses Hearing: Functional Sensation Right Lower Extremit: Intact Sensation Left Lower Extremity: Intact Transfers Functional [place] Measure 0=Not Assessed/NA 4=Minimal Assistance 1=Total Assistance 5=Supervision or Setup 2=Maximal Assistance 6=Modified [place] 3=Moderate Assistance 7=Complete [place] Transfers (B, C, W/C) (FIM): 4 Scootin Rollin Supine to/from Sit: 4 Sit to/from Stand: 5 Patient needs min assist for bed mobility just due to pain. Taught patient how to log roll. Gait Mode of Locomotion: Walk Anticipated Mode of Locomotion: Walk Gait (FIM): 5 Distance: 300' Gait Level of Assist: 5 Gait Persons Needed: 1 Gait Assistive Device: FWW Comments/Gait Description slow, antalgic ambulation Balance Sitting Static: Normal Sitting Dynamic: Normal Standing Static: Normal Standing Dynamic: Normal Assessment/Needs Patient has impaired mobility due to pain from surgery, decreased endurance Rehab Potential: Good PT Chief Nurse Goals Care Home Goals PT Care Home Goals Time Frame: February 20, 2017 Transfers (B,C,W/C) (FIM): 6 Gait (FIM): 6 Distance: 400' Gait Level of Assist: 6 Gait Assistive Device: FWW Stairs (FIM): 2 # of Steps: 4 Stairs Level Of Assist: 5 PT Plan Problem List Problem List: Activity Tolerance, Functional Strength, Safety, Balance, Gait, Transfer, Bed Mobility Treatment/Plan Treatment Plan: Continue Plan of Care Treatment Plan: Bed Mobility, Education, Functional Activity Jerry, Functional Strength, Gait, Safety, Therapeutic Exercise, Transfers Treatment Duration: February 20, 2017 # of days/week 5-6 Visits Per Week: 5-6 Minutes/Day (M-F): 15-30 Minutes/Day (Sat/Thakkar): 15-30 Pt/Family Agrees w/Plan: Yes Safety Risks/Education Patient Education: Gait Training, Transfer Techniques, Correct Positioning, Safety Issues Teaching Recipient: Patient Teaching Methods: Demonstration, Discussion Response to Teaching: Reinforcement Needed Discharge Recommendations Plan Patient will perform bed mobility and transfer training, balance and endurance training, functional strengthening, stair training, gait training, and education , to improve functional mobility and independence at home. Therapy D/C Recommendations: Home w/ Family Support Time/GCodes Time In: 1502 Time Out: 1520 Total Billed Treatment Time: 18 Total Billed Treatment 1 visit SUNG 18' LEXUS GARNER PT Feb 13, 2017 15:30
[2017-02-14] VITALS: BP 125/78
[2017-02-14] MEDS: LACTATED RINGERS 1,000 ML IV SCH (01:25)
[2017-02-14] MEDS: PIPERACILLIN SODIUM/TAZOBACTAM 4.5 GM in NS (IVPB) 100 ML IV SCH ×3 (02:04→18:06)
[2017-02-14] MEDS: fentaNYL INJECTION 100 MCG/2 ML AMP IV PRN ×3 (02:05→06:08)
[2017-02-14] MEDS: NS IV 1000 ML 1,000 ML IV SCH ×3 (03:59→17:46)
[2017-02-14 04:04] VITALS: BP 115/73
[2017-02-14 04:52] LABS: BASOPHILS % (AUTO) 0 % (0-10); EOSINOPHILS # (AUTO) 0.3 10^3/uL (0.0-0.3); EOSINOPHILS % (AUTO) 3 % (0-10); LYMPHOCYTES # (AUTO) 1.2 X 10^3 (1.0-4.0); LYMPHOCYTES % (AUTO) 10 % (12-44); MEAN CORPUSCULAR HEMOGLOBIN 29 PG (25-34); MEAN CORPUSCULAR HGB CONC 33 G/DL (32-36); MEAN CORPUSCULAR VOLUME 88 FL (80-99); MEAN PLATELET VOLUME 9.2 FL (7.4-10.4); MONOCYTES # (AUTO) 1.1 X 10^3 (0.0-1.0); MONOCYTES % (AUTO) 10 % (0-12); NEUTROPHILS # (AUTO) 9.2 X 10^3 (1.8-7.8); NEUTROPHILS % (AUTO) 78 % (42-75); PLATELET COUNT 387 10^3/uL (130-400); RED BLOOD COUNT 4.69 10^6/uL (4.35-5.85); RED CELL DISTRIBUTION WIDTH 13.5 % (10.0-14.5); WHITE BLOOD COUNT 11.9 10^3/uL (4.3-11.0)
[2017-02-14 05:05] LABS: ANION GAP 9 MMOL/L (5-14); BLOOD UREA NITROGEN 7 MG/DL (7-18); BUN/CREATININE RATIO 9; CALCIUM 8.6 MG/DL (8.5-10.1); CARBON DIOXIDE 25 MMOL/L (21-32); CHLORIDE 105 MMOL/L (98-107); CREATININE SERUM 0.79 MG/DL (0.60-1.30); GFR ESTIMATED > 60; GLUCOSE 86 MG/DL (70-105); MAGNESIUM 1.9 MG/DL (1.8-2.4); PHOSPHORUS 3.2 MG/DL (2.3-4.7); POTASSIUM 3.6 MMOL/L (3.6-5.0); SODIUM 139 MMOL/L (135-145)
[2017-02-14] MEDS: CATHETER FLUSH 10 ML SYR IV SCH ×3 (06:07→22:30)
[2017-02-14] MEDS: metroNIDAZOLE 500MG/100ML IVPB 100 ML IV SCH ×3 (06:08→22:27)
[2017-02-14] MEDS: POTASSIUM CL 10MEQ/50ML IVPB 50 ML IV SCH (06:25)
[2017-02-14] MEDS: MAGNESIUM 1 GM/100 ML IVPB 100 ML IV SCH (06:25)
[2017-02-14] MEDS: KCL 20 MEQ TAB (K-DUR) PO SCH (06:26)
[2017-02-14 07:35] VITALS: BP 120/74
--- NOTE | 2017-02-14 08:02 | Diagnostic Imaging Report ---
Clinical indication: Patient with dyspnea and sigmoid diverticulosis. Exam: Portable chest x-ray upright view. Comparisons: Chest x-ray dated 02/13/2017. Findings: Lungs/pleura: There is slight increased size of the small area of suspected discoid atelectasis in the left lung base. Otherwise, lungs are clear. There is no pleural effusion or pneumothorax. Pulmonary vasculature and cardiac silhouettes within normal limits. Bones show no significant abnormality. Impression: 1: Slight increased size of the suspected atelectasis in the left lung base. Superimposed infiltrate cannot be completely excluded. 2: The remainder of this exam shows no significant interval change compared to the prior study of comparison. Dictated by: Dictated on workstation # [id number]
--- NOTE | 2017-02-14 08:33 | OPERATIVE REPORT ---
DATE OF SERVICE: 02/11/2017 PREOPERATIVE DIAGNOSIS: Sigmoid diverticulitis perforation. POSTOPERATIVE DIAGNOSIS: Sigmoid diverticulitis perforation. PROCEDURE: Exploratory laparotomy with sigmoid resection with end colostomy (Nicolas's procedure). SURGEON: Ab Velasquez DO RENTAL SALES ASSOCIATE: Iglesia Tavarez DO, assisted in retraction, dissection and closure. ANESTHESIA: General. ESTIMATED BLOOD LOSS: Minimal. COMPLICATIONS: None. SPECIMEN: Sigmoid colon. INDICATION: The patient is a 36-year-old male who presented with acute diverticulitis with perforation and some small abscesses. He also had a small to moderate amount of free air. On physical exam on presentation he was not significantly tender. Risks and benefits of operative management at that time along with conservative management were discussed and the patient wished to try conservative management. He was doing well, his white count was continuing to improve. On the evening of 02/11 and morning of 02/12 the patient began having increased pain and fever. He on physical exam, was significantly tender. He was again discussed risks and benefits of procedure and he wished to proceed with the procedure. Consent was signed and on the chart. PROCEDURE: The patient was taken to the operating suite, he was prepped and draped in the usual sterile fashion. A surgical pause was performed. A midline incision was made and the abdomen was entered. There was a large phlegmon and firmness of the sigmoid colon and the phlegmon was all adherent to the low pelvic anteriorly. Finger fracture was used to bring the distal sigmoid colon off of the abdominal wall and abscess was walled off which then some purulent material did erupt. The distal descending colon was nice and soft with no erythematous changes. This was dissected around with a hemostat, a YULIA stapler was then fired across the distal descending colon/proximal sigmoid colon area. At this point, the LigaSure was then used to dissect the mesentery and working distally in order to remove the sigmoid colon. This was further released along the white line of Toldt and the retroperitoneum. Once the phlegmon and inflamed colon were dissected around, dissection was taken completely around the rectum where there was no inflammatory changes. A Contour stapler was then fired and specimen was removed. The abdomen was irrigated with copious amounts of irrigation at this point. A suture was placed on the specimen on the proximal end. The descending colon was then mobilized along the white line of [place] for the end colostomy. The liver was smooth. No other pathology was noted. The small bowel was normal in appearance. There was a small portion of the omentum that looked slightly ratty and therefore the LigaSure was used to transect this portion of it. A small [place] of skin was removed in the left lower quadrant. Cautery was used to remove the subcutaneous fat and the anterior rectus fascia was encountered. This was scored in a cross and an Army-S[place]ia was used to dissect bluntly through the rectus abdominal muscle through the posterior sheath which was then scored. Two fingers were able to be moved through this. The end colostomy was able to be pulled up through this defect that was created. The abdomen was irrigated with copious amounts of irrigation. Hemostasis had been achieved. All instrument counts and sponge counts were correct at this time. The midline fascia was then closed using 1-0 looped PDS suture. A [place] drain was placed within the incision and brought out through the incision and the skin was then loosely approximated with ford. The colostomy was then opened, the suture line was removed and was secured with 2-0 Vicryl sutures. This did retract slightly, but still had connection to the outside. The abdomen was then washed and dried, sterile bandages were applied and a colostomy appliance was applied. The patient tolerated the procedure well without any complications. He was taken to the recovery room in stable condition. Job ID: [id number] DocumentID: [id number] Dictated Date: 02/12/2017 16:45:44 Special Procedures Tech Date: 02/13/2017 05:37:19 Dictated By: AB VELASQUEZ DO
[2017-02-14] MEDS: FAMOTIDINE 20MG/2ML IV (PEPCID) IVP SCH (09:06)
[2017-02-14] MEDS: HYDROcodone/APAP 5 MG/325 MG (LORTAB) TAB PO PRN ×4 (09:07→22:30)
[2017-02-14] MEDS: DOCUSATE SODIUM 100 MG (COLACE) CAP PO SCH ×2 (09:07→20:00)
--- NOTE | 2017-02-14 10:00 | Physical Therapy Daily Note ---
PT Daily Note-Current Subjective Patient rates abdominal pain 7/10 with RN issuing pain medication. Pain Numeric Pain Scale: 7 Location: Lower Location Body Site: Abdomen Pain Description: Pressure, Acute Mental Status Patient Orientation: Normal For Age Attachments: IV Transfers Functional [place] Measure 0=Not Assessed/NA 4=Minimal Assistance 1=Total Assistance 5=Supervision or Setup 2=Maximal Assistance 6=Modified [place] 3=Moderate Assistance 7=Complete IndependenceIRFPAI Quality Coding Scale 6 Independent with activity with or without an assistive device 5 Patient requires set up or clean up by helper. Patient completes activity by themselves 4 Supervision or touching assist (CGA). [place] provide cues , steadying assist 3 The helper provides less than half the effort to complete the activity 2 The helper provides more than half the effort to complete the activity 1 Dependent. The helper does all the effort to complete an activity 7 Patient refused to complete or attempt activity 9 The patient did not perform the activity before the current illness or injury 88 Not attempted due to Medical conditions or safety concerns Transfers (B, C, W/C) (FIM): 6 Scootin Rollin Supine to/from Sit: 6 Sit to/from Stand: 6 slow and painful with HOB elevated and use of side rail Gait Training Gait (FIM): 6 Distance (FIM): 3=150 ft Distance: 500' Gait Level of Assist: 6 Gait Assistive Device: FWW safe and functional gait Assessment Patient is progressing with mobility and does not require skilled therapy at this time. Patient and RN instructed to ambulate PRN in hallway by self. All agree with plan. PT Core Man Goals Detention Goals PT Core Man Goals Time Frame: February 20, 2017 Transfers (B,C,W/C) (FIM): 6 Gait (FIM): 6 Distance: 400' Gait Level of Assist: 6 Gait Assistive Device: FWW Stairs (FIM): 2 # of Steps: 4 Stairs Level Of Assist: 5 PT Plan Treatment/Plan Treatment Plan: Discontinue PT Treatment Plan: Bed Mobility, Education, Functional Activity Jerry, Functional Strength, Gait, Safety, Therapeutic Exercise, Transfers Treatment Duration: February 20, 2017 Visits Per Week: 5-6 Minutes/Day (M-F): 15-30 Minutes/Day (Sat/Thakkar): 15-30 Time/GCodes Time In: 900 Time Out: 915 Total Billed Treatment Time: 15 Total Billed Treatment 1 visit FA 15 min TANNER FLORES PT Feb 14, 2017 10:00
[2017-02-14 11:36] VITALS: BP 131/72
[2017-02-14] MEDS: ENOXAPARIN 40 MG/0.4 ML (LOVENOX) SYR SC SCH (13:34)
[2017-02-14 16:55] VITALS: BP 112/68
[2017-02-14 20:50] VITALS: BP 126/76
[2017-02-15] VITALS: BP 132/78
[2017-02-15] MEDS: NS IV 1000 ML 1,000 ML IV SCH ×3 (00:23→09:30)
[2017-02-15] MEDS: HYDROcodone/APAP 5 MG/325 MG (LORTAB) TAB PO PRN ×3 (02:33→13:28)
[2017-02-15] MEDS: PIPERACILLIN SODIUM/TAZOBACTAM 4.5 GM in NS (IVPB) 100 ML IV SCH ×2 (02:34→11:47)
[2017-02-15] MEDS: metroNIDAZOLE 500MG/100ML IVPB 100 ML IV SCH (06:24)
[2017-02-15] MEDS: CATHETER FLUSH 10 ML SYR IV SCH (06:24)
[2017-02-15 06:56] LABS: BASOPHILS % (AUTO) 0 % (0-10); EOSINOPHILS # (AUTO) 0.4 10^3/uL (0.0-0.3); EOSINOPHILS % (AUTO) 3 % (0-10); LYMPHOCYTES # (AUTO) 1.1 X 10^3 (1.0-4.0); LYMPHOCYTES % (AUTO) 10 % (12-44); MEAN CORPUSCULAR HEMOGLOBIN 29 PG (25-34); MEAN CORPUSCULAR HGB CONC 33 G/DL (32-36); MEAN CORPUSCULAR VOLUME 88 FL (80-99); MEAN PLATELET VOLUME 9.1 FL (7.4-10.4); MONOCYTES # (AUTO) 0.8 X 10^3 (0.0-1.0); MONOCYTES % (AUTO) 7 % (0-12); NEUTROPHILS # (AUTO) 8.6 X 10^3 (1.8-7.8); NEUTROPHILS % (AUTO) 79 % (42-75); PLATELET COUNT 380 10^3/uL (130-400); RED BLOOD COUNT 4.69 10^6/uL (4.35-5.85); RED CELL DISTRIBUTION WIDTH 13.5 % (10.0-14.5); WHITE BLOOD COUNT 10.9 10^3/uL (4.3-11.0)
[2017-02-15 07:17] LABS: ANION GAP 9 MMOL/L (5-14); BLOOD UREA NITROGEN 7 MG/DL (7-18); BUN/CREATININE RATIO 9; CALCIUM 8.5 MG/DL (8.5-10.1); CARBON DIOXIDE 23 MMOL/L (21-32); CHLORIDE 108 MMOL/L (98-107); CREATININE SERUM 0.77 MG/DL (0.60-1.30); GFR ESTIMATED > 60; GLUCOSE 77 MG/DL (70-105); MAGNESIUM 1.8 MG/DL (1.8-2.4); POTASSIUM 3.8 MMOL/L (3.6-5.0); SODIUM 140 MMOL/L (135-145)
[2017-02-15] MEDS ORDERED: HYDR-3812 PO (08:13)
[2017-02-15] MEDS ORDERED: DOCU-143 PO (08:13)
[2017-02-15] MEDS ORDERED: AMOX-358 PO ×2 (08:17→08:43)
--- NOTE | 2017-02-15 08:29 | Discharge Inst-Simple/Standard ---
Discharge Inst-Standard Discharge Medications New, Converted or Re-Newed RX: RX on Chart Patient Instructions/Follow Up Plan of Care/Instructions/FU: Follow up with Dr. Velasquez on saturday. Take medication as directed. Continue with Soft diet and slowly advance. IS x10 Q1hr Daily dressing change. Activity as Tolerated: No Discharge Diet: Soft Diet Other Inst to Patient Follow up Appt: Make appointment for Saturday. Instructions: No lifting greater than 10 pounds. No strenuous activity. May shower in 24 hours, no tub bath or soaking. Use incentive spirometer at home as directed. No Smoking Skin/Wound Care: Follow directions as provided by Ostomy Nurse. Symptoms to Report: Appetite Changes, Extremity Discoloration, Numbness/Tingling, Swelling Increased , Bleeding Excessive, Eyesight Changes, Pain Increased, Urine Color Change, Constipation(Persistent), Fever over 101 degree F, Pain/Pressure in chest, Urinating Difficulty, Cough Up/Vomit Blood, Heart Beat Irreg/Pounding, Pain/ Pressure in jaw, Vaginal Bleeding Increase, Cramps in feet or legs, Lightheadedness, Pain/Pressure in shoulder, Diarrhea(Persistent), Memory Changes Suddenly, Questions/Concerns, Weight gain consecutive days, Dizziness/ Fainting, Nausea/Vomiting, Shortness of Breath, Weight gain over 2 pounds If questions or concerns contact your physician Or seek help at emergency department. SHEREE OG APRN Feb 15, 2017 08:29
[2017-02-15 08:42] VITALS: BP 128/81
--- NOTE | 2017-02-15 08:49 | Discharge Inst-Home Health ---
Discharge Inst-to Home Health VIA [place], [place] DISCHARGE ORDERS Allergies: Coded Allergies: No Known Drug Allergies (Unverified , 02/09/17) Height (Feet): 5 Height (Inches): 10.00 Weight (Pounds): 218 Weight (Ounces): 1.0 Home Health Need/Face to Face Reason Pt Homebound Patient will need supplies for ostomy and further education with hands on. I Have Seen Pt [id number]: Yes Discharged To: Home Diagnosis/Conditions HH Order: S/P exploratory laparotomy, sigmoid resection with end colostomy (chris's) Consult/Follow Up/New Order *I certify that based on my findings, the following services are medically necessary Home Health Services: Services: Nursing Services, Other (ostomy care) My clinical findings support the need for the above services; see Diagnosis. I certify that this patient is under my care and that I, a nurse practitioner or a physician; a podiatric assistant working with me, had a face to face encounter that - meets the physician face to face encounter requirements with this patient as dated. SHEREE OG APRN Feb 15, 2017 08:49
--- NOTE | 2017-02-15 09:28 | Discharge Summary ---
Diagnosis/Chief Complaint Date of Admission Feb 09, 2017 at 21:16 Date of Discharge Discharge Diagnosis S/P exploratory laparotomy, sigmoid resection with end colostomy (chris's). Discharge Summary Procedures: NAME:[facility] REC#:[id number] :1980 LOCATION:4TH ADMIT DATE:02/09/17 DATE OF SERVICE: 02/11/2017 PREOPERATIVE DIAGNOSIS: Sigmoid diverticulitis perforation. POSTOPERATIVE DIAGNOSIS: Sigmoid diverticulitis perforation. PROCEDURE: Exploratory laparotomy with sigmoid resection with end colostomy (Chris's procedure). SURGEON: Ab Sheikh DO INFORMATION MANAGEMENT MANAGER: Iglesia Tavarez DO, assisted in retraction, dissection and closure. ANESTHESIA: General. ESTIMATED BLOOD LOSS: Minimal. COMPLICATIONS: None. SPECIMEN: Sigmoid colon. INDICATION: The patient is a 36-year-old male who presented with acute diverticulitis with perforation and some small abscesses. He also had a small to moderate amount of free air. On physical exam on presentation he was not significantly tender. Risks and benefits of operative management at that time along with conservative management were discussed and the patient wished to try conservative management. He was doing well, his white count was continuing to improve. On the evening of 02/11 and morning of 02/12 the patient began having increased pain and fever. He on physical exam, was significantly tender. He was again discussed risks and benefits of procedure and he wished to proceed with the procedure. Consent was signed and on the chart. PROCEDURE: The patient was taken to the operating suite, he was prepped and draped in the usual sterile fashion. A surgical pause was performed. A midline incision was made and the abdomen was entered. There was a large phlegmon and firmness of the sigmoid colon and the phlegmon was all adherent to the low pelvic anteriorly. Finger fracture was used to bring the distal sigmoid colon off of the abdominal wall and abscess was walled off which then some purulent material did erupt. The distal descending colon was nice and soft with no erythematous changes. This was dissected around with a hemostat, a YULIA stapler was then fired across the distal descending colon/proximal sigmoid colon area. At this point, the LigaSure was then used to dissect the mesentery and working distally in order to remove the sigmoid colon. This was further released along the white line of Toldt and the retroperitoneum. Once the phlegmon and inflamed colon were dissected around, dissection was taken completely around the rectum where there was no inflammatory changes. A Contour stapler was then fired and specimen was removed. The abdomen was irrigated with copious amounts of irrigation at this point. A suture was placed on the specimen on the proximal end. The descending colon was then mobilized along the white line of Toldt for the end colostomy. The liver was smooth. No other pathology was noted. The small bowel was normal in appearance. There was a small portion of the omentum that looked slightly ratty and therefore the LigaSure was used to transect this portion of it. A small galena of skin was removed in the left lower quadrant. Cautery was used to remove the subcutaneous fat and the anterior rectus fascia was encountered. This was scored in a cross and an Army-Lely was used to dissect bluntly through the rectus abdominal muscle through the posterior sheath which was then scored. Two fingers were able to be moved through this. The end colostomy was able to be pulled up through this defect that was created. The abdomen was irrigated with copious amounts of irrigation. Hemostasis had been achieved. All instrument counts and sponge counts were correct at this time. The midline fascia was then closed using 1-0 looped PDS suture. A Sharda drain was placed within the incision and brought out through the incision and the skin was then loosely approximated with ford. The colostomy was then opened, the suture line was removed and was secured with 2-0 Vicryl sutures. This did retract slightly, but still had connection to the outside. The abdomen was then washed and dried, sterile bandages were applied and a colostomy appliance was applied. The patient tolerated the procedure well without any complications. He was taken to the recovery room in stable condition. Job ID: [id number] DocumentID: [id number] Dictated Date: 02/12/2017 16:45:44 Cyber Workforce Developer And Manager Date: 02/13/2017 05:37:19 Dictated By: AB SHEIKH DO [id number] <Dictated by AB SHEIKH DO> Discharge Physical Examination Allergies: Coded Allergies: No Known Drug Allergies (Unverified , 02/09/17) Vitals & I&Os Vital Signs Date Time Temp Pulse Resp B/P (MAP) Pulse Ox O2 Delivery O2 Flow Rate FiO2 02/15/17 13:35 86 18 128/81 91 3.00 02/15/17 08:42 97.3 Room Air General Appearance: Alert, Oriented X3, Cooperative Respiratory: Other (No distress noted. Even respirations. ) Cardiovascular: Regular Rate Abdominal: Other (mild tenderness along incision. Minimal tenderness to right lower quandrant. ) Skin: Other (Blister to left lower quadrant. Cause has been addressed by ostomy nurse. ) Neuro: Normal Gait, Normal Speech Psych/Mental Status: Mental Status NL, Mood NL Hospital Course This is a 36-year-old male patient who presented to the ER with left lower quadrant abdominal pain and fever of 101.8. Patient denied any nausea or vomiting. He had a CT scan that show acute diverticulitis with perforation and some small abscesses. He also had a small to moderate amount of free air. On physical exam on presentation he was not significantly tender. Risks and benefits of operative management at that time along with conservative management were discussed and the patient wished to try conservative management. He was doing well, his white count was continuing to improve. On the evening of02/11 and morning of 02/12 the patient began having increased pain and fever. He on physical exam, was significantly tender. He was again discussed risks and benefits of procedure and he wished to proceed with the procedure. Consent was signed and on the chart. The patient tolerated the procedure well without any complications. He was taken to the recovery room in stable condition. The patient progressively got better with WBC trending down and pain getting under control. Patient also start to pass gas and stool to the ostomy bag. Patient was able to tolerate sips of clear and full liquid diet . No fever, nausea or vomiting. The ostomy nurse was able to provide education for ostomy care. Patient will be sent home with Augmentin 875mg BID x 10days, Hydrocodone and Colace 100mg bid. We will see patient in clinic on saturday. Patient to be discharged with home health. Pending Labs Discussion & Recommendations -Discussed pt with . Dr. Sheikh agrees with assessment and discharge of patient. Discharge Instructions to patient/family Please see electonic discharge instructions given to patient. Discharge Medications Reviewed and agree with Discharge Medication list on patient's Discharge Instruction sheet Clinical Quality Measures DVT/VTE Risk/Contraindication: RFS Level Per Nursing on Admit: 1=Low/No VTE PPX SHEREE OG APRN Feb 15, 2017 09:28
[2017-02-15] MEDS: DOCUSATE SODIUM 100 MG (COLACE) CAP PO SCH (11:47)
[2017-02-15] MEDS: FAMOTIDINE 20MG/2ML IV (PEPCID) IVP SCH (11:47)
[2017-02-15 13:35] VITALS: BP 128/81
--- NOTE | 2017-02-18 17:42 | Progress Note ---
Subjective Subjective/Events-last exam Note for 02/14/2017 Patient pain controlled. Stool out colostomy. No new complaints. Denies n/v fever sweats chills shortness of breath or chest pain. Objective Exam Capillary Refill : Less Than 3 SecondsLess Than 3 Seconds General Appearance: No Apparent Distress, WD/WN HEENT: PERRL/EOMI, Normal ENT Inspection, Pharynx Normal Neck: Full Range of Motion, Normal Inspection, Non Tender, Supple Respiratory: No Accessory Muscle Use, No Respiratory Distress Cardiovascular: Regular Rate, Rhythm Gastrointestinal: soft, tenderness (Tenderness around the incision site. colostomy with stool) Extremity: Non Tender, No Calf Tenderness, No Pedal Edema Neurologic/Psychiatric: Alert, Oriented x3, No Motor/Sensory Deficits, Normal Mood/Affect Skin: Warm/Dry, Other (Patient has midline incision with renae drain. minimal drainage noted with Drainage. ) Lymphatic: No Adenopathy Results Lab Microbiology 02/09/17 Blood Culture - Final, Complete Propionibacterium Species 02/10/17 MRSA Screen - Final, Complete MRSA not isolated Assessment/Plan Assessment/Plan Assessment/Plan S/P exploratory laparotomy, sigmoid resection with end colostomy (chris's) pain control incentive spirometer home likely tomorrow. Clinical Quality Measures DVT/VTE Risk/Contraindication: RFS Level Per Nursing on Admit: 1=Low/No VTE PPX AB SHEIKH DO February 18, 2017 17:42
== END 2017-02-15 13:35 | disposition home health service (06) | DRG 330 ==
LOC: EDUNIT# 19:38 → ER 19:41 → ICU 21:16 → 4TH 02-13 10:51
PROVIDERS: ADMIT Surgery; ATTEND Surgery
PROC: 0D1M0Z4 Bypass Descending Colon to Cutaneous, Open Approach (ICD-10-PCS; 2017-02-11)
PROC: 0DTN0ZZ Resection of Sigmoid Colon, Open Approach (ICD-10-PCS; principal; 2017-02-11 11:21)
DX: K57.20 Diverticulitis of large intestine with perforation and abscess without bleeding (principal); J98.11 Atelectasis
CPT/HCPCS: 36415; 71010; 74177; 80048; 80053; 81000; 83605; 83735; 84100; 85007; 85025; 85027; 86850; 86900; 86901; 87040; 87081; 88307; 94664; 96365; 96367; 96375; 96376

== ENCOUNTER 2017-08-15 05:35 | Outpatient (CLI) | payer OTHER ==
[~2017-08-15] VITALS: Ht 177.8 cm; Wt 98.9 kg
[~2017-08-15 05:35] MED LIST: AMOX-358 PO; DOCU-143 PO; HYDR-3812 PO
== END 2017-08-15 10:56 ==
LOC: PREOP 05:35
PROVIDERS: ATTEND Surgery
DX: Z01.818 Encounter for other preprocedural examination (principal); K57.30 Diverticulosis of large intestine without perforation or abscess without bleeding

== ENCOUNTER 2017-08-20 10:08 | Day surgery (SDC) | payer OTHER ==
[~2017-08-20] VITALS: Ht 177.8 cm; Wt 98.9 kg
[2017-08-20 10:10] VITALS: BP 126/75
[2017-08-20] MEDS ORDERED: LACTATED RINGERS 1,000 ML IV ONE (10:16)
[2017-08-20] MEDS ORDERED: FLEET ENEMA ADULT 1 EA BTL ONE (10:16)
--- NOTE | 2017-08-20 10:21 | Progress Note-Pre Operative ---
Pre-Operative Progress Note H&P Reviewed The H&P was reviewed, patient examined and no changes noted. Date Seen by Provider: Aug 20, 2017 Time Seen by Provider: 10: Date H&P Reviewed: Aug 20, 2017 Time H&P Reviewed: : Pre-Operative Diagnosis: history perforated diverticulitis, s/p brito procedure AB SHEIKH DO Aug 20, 2017 10:21
[2017-08-20] MEDS ORDERED: LACTATED RINGERS 1,000 ML IV STA (11:05)
[2017-08-20] MEDS ORDERED: proPOfol 200 MG/20 ML (DIPRIVAN) VIAL IV ONE (11:21)
[2017-08-20] MEDS ORDERED: MIDAZOLAM 5 MG/5 ML (VERSED) VIAL ONE (11:22)
--- NOTE | 2017-08-20 11:56 | Progress Note-Post Operative ---
Post-Operative Progess Note Surgeon (s)/Network Support Engineer (s) Surgeon AB SHEIKH DO Network Support Engineer: na Pre-Operative Diagnosis history perforated diverticulitis, s/p brito procedure Post-Operative Diagnosis normal colon Procedure & Operative Findings Date of Procedure 08/20/17 Procedure Performed/Findings colonoscopy Anesthesia Type per change management director Estimated Blood Loss Estimated blood loss (mL): none Specimens/Packing Specimens Removed none AB SHEIKH DO Aug 20, 2017 11:56 am
--- NOTE | 2017-08-20 11:57 | Discharge Inst-Simple/Standard ---
Discharge Inst-Standard Patient Instructions/Follow Up Plan of Care/Instructions/FU: 1 week Eva Activity as Tolerated: Yes Discharge Diet: Regular Diet AB SHEIKH DO Aug 20, 2017 11:57 am
[2017-08-20 12:15] VITALS: BP 125/77
[2017-08-20] MEDS ORDERED: FLEET ENEMA ADULT 1 EA BTL PR ONE (12:30)
[2017-08-20 13:00] VITALS: BP 108/64
[2017-08-20 13:35] VITALS: BP 108/64
--- NOTE | 2017-08-21 00:22 | OPERATIVE REPORT ---
DATE OF SERVICE: 08/20/2017 PREOPERATIVE DIAGNOSIS: History of perforated diverticulitis, status post Nicolas procedure. POSTOPERATIVE DIAGNOSIS: Normal colon. PROCEDURE: Colonoscopy. SURGEON: Ab Velasquez DO. ANESTHESIA: Per NURSE CASE MANAGER. ESTIMATED BLOOD LOSS: None. COMPLICATIONS: None. INDICATIONS: The patient is a 37-year-old male who had perforated diverticulitis. He understands risks and benefits of procedure and wished to proceed with procedure. Consent was signed in the chart. DESCRIPTION OF PROCEDURE: The patient was taken to the endoscopy suite, placed in left lateral recumbent position. Timeout was performed. Scope was inserted through the ileostomy advanced all way to the cecum without difficulty. Prep was adequate with irrigation and suction. There were no polyps, masses or ulcerations within the cecum, ascending, transverse and descending colon. The digital rectal exam was performed and there were no palpable polyps, mass, or ulcerations. The scope was inserted in the rectum and advanced all the way to the end of the pouch. Small diverticuli present at the end otherwise, normal pouch. Scope was slowly retracted until completely removed, noting no other pathology. The patient tolerated the procedure well without any complications. He was taken to the recovery room in stable condition. RECOMMENDATIONS: We would recommend proceeding with colostomy takedown and reanastomosis. The patient will follow up in the office in 1 week to discuss risks and benefits and further recommendations. Job ID: [id number] DocumentID: [id number] Dictated Date: 08/20/2017 13:05:26 Dog Day Care Attendant Date: 08/21/2017 00:21:54 Dictated By: AB VELASQUEZ DO
== END 2017-08-20 15:15 | disposition home or self-care (01) ==
LOC: ENDO 10:08
PROVIDERS: ATTEND Surgery
DX: Z09 Encounter for follow-up examination after completed treatment for conditions other than malignant neoplasm (principal); Z87.19 Personal history of other diseases of the digestive system; K57.20 Diverticulitis of large intestine with perforation and abscess without bleeding; Z93.2 Ileostomy status; Z87.891 Personal history of nicotine dependence

== ENCOUNTER 2017-09-11 05:37 | Outpatient (CLI) | payer OTHER ==
[~2017-09-11] VITALS: Ht 177.8 cm; Wt 98.9 kg
== END 2017-09-11 11:55 ==
LOC: PREOP 05:37
PROVIDERS: ATTEND Surgery
DX: Z01.818 Encounter for other preprocedural examination (principal); Z87.19 Personal history of other diseases of the digestive system

== ENCOUNTER 2019-10-28 04:35 | Emergency (ER) | payer OTHER ==
[~2019-10-28] VITALS: Ht 180.3 cm; Wt 117.9 kg
[~2019-10-28 04:35] MED LIST changes: +ACHD5005 PO; -HYDR-3812 PO; +Hydrocodone Bit/Acetaminophen PO
[2019-10-28] MEDS ORDERED: KETOROLAC 30 MG/ML VIAL IVP ONE (05:00)
[2019-10-28] MEDS ORDERED: ORPHENADRINE 60 MG/2 ML (NORFLEX) AMP IV ONE (05:00)
[2019-10-28] MEDS ORDERED: methylPREDNISolone 125 MG (Solu-MEDROL) VIAL IVP ONE (05:45)
[2019-10-28] MEDS ORDERED: fentaNYL INJECTION 100 MCG/2 ML AMP IVP ONE (05:45)
--- NOTE | 2019-10-28 05:54 | ED Back Pain ---
General Chief Complaint: Back Problems Stated Complaint: BACK PAIN Nursing Triage Note: WOKE OUT OF A SLEEP AT 0400, PER PATIENT, TO EXCRUCIATING RIGHT MID BACK PAIN, CAUSING HIM TO HAVE SHORTNESS OF BREATH. 8/10 ON PAIN SCALE. A&O X4 Nursing Sepsis Screen: No Definite Risk Source of Information: Patient, Family Exam Limitations: No Limitations History of Present Illness Date Seen by Provider: Oct 28, 2019 Time Seen by Provider: 04:42 Initial Comments This 39-year-old man presents to the emergency room with sharp sudden onset of pain beneath the right scapula that woke him from sleep. Pain started around 04:00. It is tender to palpation and hurts to breathe. He denies any injury. He has not taken any medications to help with the pain. Patient does appear in distress from the pain. Patient has recently had a respiratory illness for which she has been treated with prednisone. He has had a significant amount of coughing recently which may have triggered his pain. Allergies and Home Medications Allergies Coded Allergies: No Known Drug Allergies (Unverified , 08/15/17) Home Medications Cyclobenzaprine HCl 10 Mg Tablet, 10 MG PO TID PRN for SPASMS Prescribed by: FAVIAN ZUNIGA on 10/28/19617 Docusate Sodium 100 Mg Capsule, 100 MG PO BID Prescribed by: AB SHEIKH on 09/19/17 1241 Hydrocodone Bit/Acetaminophen 1 Tab Tab, 1-2 EACH PO Q6H PRN for PAIN-MODERATE Prescribed by: FAVIAN ZUNIGA on 10/28/19617 [Hydrocodone Bit/Acetaminophen] Y TAB, 1 TAB PO Q4H PRN for PAIN-MODERATE Prescribed by: AB SHEIKH on 09/19/17 1241 Patient Home Medication List Home Medication List Reviewed: Yes Review of Systems Constitutional: no symptoms reported EENTM: no symptoms reported Respiratory: see HPI Cardiovascular: no symptoms reported Gastrointestinal: no symptoms reported Genitourinary: no symptoms reported Musculoskeletal: see HPI Skin: no symptoms reported Psychiatric/Neurological: No Symptoms Reported Past Mzbkioz-Tzgovg-Ixbkhe Hx Past Med/Social Hx: Reviewed Nursing Past Med/Soc Hx Patient Social History Alcohol Use: Rarely Uses Recreational Drug Use: No Type Used: Smokeless Tobacco Former Smoker, Quit: Aug 15, 2011 2nd Hand Smoke Exposure: No Recent Foreign Travel: No Contact w/Someone Who Travel: No Recent Infectious Disease Expo: No Recent Hopitalizations: No Physical Abuse: No Sexual Abuse: No Mistreated: No Fear: No Immunizations Up To Date Tetanus Booster (TDap): Unknown Date of Influenza Vaccine: Jul 29, 2017 Seasonal Allergies Seasonal Allergies: Yes Past Medical History Surgeries: Yes (EAR, BOWEL RESECTION-DIVERTIC) Bowel Surgery Respiratory: No Currently Using CPAP: No Currently Using BIPAP: No Cardiac: No Neurological: No Reproductive Disorders: No Sexually Transmitted Disease: No HIV/AIDS: No Genitourinary: Yes Kidney Stones Gastrointestinal: Yes (COLOSTOMY) Diverticulosis Musculoskeletal: No Endocrine: No HEENT: No Loss of Vision: Bilateral Hearing Impairment: Denies Cancer: No Psychosocial: No Integumentary: No Blood Disorders: No Adverse Reaction/Blood Tranf: No (N/A) Family Medical History No Pertinent Family Hx Physical Exam Vital Signs Vital Signs - First Documented 10/28/19 04:45 Temp 37.2 Pulse 93 Resp 22 B/P (MAP) 118/84 (95) Pulse Ox 96 Capillary Refill : Less Than 3 Seconds Height, Weight, BMI Height: 5'10.00" Weight: 218lbs. 0.0oz. 98.404279ip; 36.00 BMI Method:Stated General Appearance: WD/WN, Obese HEENT: Normal ENT Inspection Neck: Normal Inspection Cardiovascular: Regular Rate, Rhythm, No Edema, No Murmur Respiratory: Lungs Clear, Normal Breath Sounds, No Accessory Muscle Use, No Respiratory Distress Gastrointestinal: Normal Bowel Sounds, Non Tender, Soft Back: Other (tenderness in the musculature of the mid back just inferior to the right scapula) Extremity: Normal Inspection Neurologic/Psychiatric: Alert, Oriented x3, No Motor/Sensory Deficits, Normal Mood/Affect, whale fisherman II-XII Norm as Tested Skin: Normal Color, Warm/Dry Progress/Results/Core Measures Results/Orders My Orders Orders - FAVIAN MATTHEW MD Ed Iv/Invasive Line Start (10/28/19 04:48) Ketorolac Injection (Toradol Injection) (10/28/19 05:00) Orphenadrine Injection (Norflex Injectio (10/28/19 05:00) Methylprednisolone Sod Succ (Solu-Medrol (10/28/19 05:45) Fentanyl Injection (Sublimaze Injection (10/28/19 05:45) Medications Given in ED Vital Signs/I&O 10/28/19 10/28/19 04:45 06:30 Temp 37.2 Pulse 93 69 Resp 22 18 B/P (MAP) 118/84 (95) 119/81 (95) Pulse Ox 96 96 Blood Pressure Mean: 95 Progress Progress Note : Progress Note An IV was established and he was treated with Toradol and Norflex. This improved his pain but he still had some significant residual pain. Fentanyl was then given along with a dose of Solu-Medrol. Departure Impression Primary Impression: Muscle spasm of back Additional Impression: Upper back pain on right side Disposition: HOME, SELF-CARE Condition: Improved Departure-Patient Inst. Decision time for Depature: 06:14 Referrals: ALLYSON VERAS MD (PCP/Family) Primary Care Physician Patient Instructions: Upper Back Pain Add. Discharge Instructions: Continue taking medications previously prescribed. For primary pain control take ibuprofen up to 600 mg every 6 hours or naproxen (Aleve) 500 mg twice daily. Add hydrocodone as prescribed for pain not controlled by [id number]-[id number] medications. Gentle heat over the affected area may help your muscles relax. Avoid strenuous activity involving muscles of your back until symptoms improve. Use hydrocodone and your muscle relaxer with caution as they may cause drowsiness. Do not drive or operate machinery on these medications. Return to care or contact your primary care provider within any further problems or concerns or worsening symptoms. All discharge instructions reviewed with patient and/or family. Voiced understanding. Scripts Cyclobenzaprine HCl (Cyclobenzaprine HCl) 10 Mg Tablet 10 MG PO TID PRN for SPASMS, #10 TAB Prov: FAVIAN MATTHEW MD 10/28/19 Hydrocodone Bit/Acetaminophen (Hydrocodone/Acetaminophen 5/325mg Tablet) 1 Tab Tab 1-2 EACH PO Q6H PRN for PAIN-MODERATE MDD 10, #10 TAB 0 Refills Prov: FAVIAN MATTHEW MD 10/28/19 FAVIAN MATTHEW MD Oct 28, 2019 05:54
[2019-10-28] MEDS ORDERED: ACHD5005 PO (06:18)
[2019-10-28] MEDS ORDERED: CYCL10TA9 PO (06:18)
[2019-10-28 06:30] VITALS: BP 119/81
== END 2019-10-28 06:33 | disposition home or self-care (01) ==
LOC: EDUNIT# 04:35 → ER 04:37
DX: M62.830 Muscle spasm of back (principal); Z87.891 Personal history of nicotine dependence; Z87.442 Personal history of urinary calculi; Z93.3 Colostomy status
CPT/HCPCS: 96374; 96375; 99281